=== PATIENT | female | born 1995 | race Caucasian/White ===

== ENCOUNTER 2023-04-17 22:31 | Emergency (ER) | payer OTHER, SELFPAY ==
[2023-04-17 22:41] VITALS: BP 153/97; PULSE 90; RESP 16; TEMP 36.6; O2SAT 100; BMI 37.9
--- NOTE | 2023-04-17 23:51 | ED_ITS ---
HPI - General Adult General Chief complaint: Dizziness Stated complaint: DIZZINESS, COUGH Time Seen by Provider: 04/17/23 23:46 Source: patient Mode of arrival: walk-in Limitations: no limitations History of Present Illness HPI narrative: patient states her home preg test was positive 3 days ago. Her LMP was march. States she had some lower abdominal cramping earlier and tonight felt a little light headed. Carnation like she needed to sit down. Room not spinning and she is not off balance. room not turning dark. no fever or urinary symptoms. She just wanted to get checked out. Related Data Home Medications Medication Instructions Recorded Confirmed albuterol sulfate 90 mcg/actuation 2 inh inhalation Q4H 04/17/23 04/17/23 aerosol inhaler (Ventolin HFA) duloxetine 60 mg capsule,delayed 60 mg PO DAILY 04/17/23 04/17/23 release Allergies Allergy/AdvReac Type Severity Reaction Status Date / Time No Known Drug Allergies Allergy Verified 04/17/23 22:49 Review of Systems ROS Status of ROS 10 or more systems reviewed and unremark able except as noted in history and below [facility] Social History Smoking status: Current every day smoker Exam Constitutional Vital Signs, click to edit/add: Last Vital Signs Temp 97.8 F 04/17/23 22:41 Pulse 90 04/17/23 22:41 Resp 16 04/17/23 22:41 BP 153/97 H 04/17/23 22:41 Pulse Ox 100 04/17/23 22:41 O2 Del Method Room Air 04/17/23 22:41 Common normals: no apparent distress, average body habitus, oriented x3, no limitations, healthy appearing, alert and well nourished Eye Common normals: EOMs intact bilaterally and conjunctivae normal Respiratory Common normals: normal respiratory effort, no retractions, no use of accessory muscles and clear to auscultation bilaterally Cardio Common normals: regular rate, regular rhythm, S1 normal heart sound and S2 normal heart sound GI Common normals: Normal to inspection, nondistended, normoactive bowel sounds present, soft to palpation and non-tender Extremity Common normals: normal to inspection and full ROM Neuro Common normals: oriented x3, CN's II-XII intact bilaterally, moves all extremities and no focal motor deficits Psych Appearance: grossly normal Course Vital Signs Vital signs: Vital Signs Temperature 97.8 F 04/17/23 22:41 Pulse Rate 90 04/17/23 22:41 Respiratory Rate 16 04/17/23 22:41 Blood Pressure 153/97 H 04/17/23 22:41 Pulse Oximetry 100 04/17/23 22:41 Oxygen Delivery Method Room Air 04/17/23 22:41 Temperature 97.8 F 04/17/23 22:41 Pulse Rate 90 04/17/23 22:41 Respiratory Rate 16 04/17/23 22:41 Blood Pressure 153/97 H 04/17/23 22:41 Pulse Oximetry 100 04/17/23 22:41 Oxygen Delivery Method Room Air 04/17/23 22:41 Medical Decision Making MDM Narrative Medical decision making narrative: patient presents with complaint of abdominal cramping and feeling light headed. She is . no vagina bleeding. Exam neg. Workup unremarkable except UA with evidence of dehydration. patient discharged and advised to increase fluid intake Lab Data Labs: Lab Results 04/18/23 04/18/23 Range/Units 00:00 00:08 WBC 10.0 (4.0-11.0) 10^3/uL RBC 4.68 (4.20-5.40) 10^6/uL Hgb 13.4 (12.0-16.0) g/dL Hct 39.8 (36.0-48.0) % MCV 85.0 (81.0-99.0) fL MCH 28.6 (26.7-34.0) pg MCHC 33.7 (29.9-35.2) g/dL RDW 12.4 (11.0-15.0) % Plt Count 330 (150-450) 10^3/uL MPV 11.0 (9.5-13.5) fL Neut % (Auto) 58.1 (43.0-75.0) % Lymph % (Auto) 30.1 (20.5-60.0) % [place] % (Auto) 6.6 (1.7-12.0) % Eos % (Auto) 4.3 (0.9-7.0) % Baso % (Auto) 0.6 (0.2-2.0) % Neut # (Auto) 5.8 (1.4-6.5) 10^3/uL Lymph # (Auto) 3.0 (1.2-3.8) 10^3/uL [place] # (Auto) 0.7 (0.3-0.8) 10^3/uL Eos # (Auto) 0.4 (0.0-0.7) 10^3/uL Baso # (Auto) 0.1 (0.0-0.1) 10^3/uL Abs Immat Gran (auto) 0.03 (0.00-0.03) 10^3/uL Imm/Tot Granulo (auto) 0.3 (0.0-0.5) % Sodium 140 (136-145) mmol/L Potassium 3.4 L (3.5-5.1) mmol/L Chloride 104 (98-107) mmol/L Carbon Dioxide 25.9 (21.0-32.0) mmol/L Anion Gap 13.5 BUN 8.0 (7.0-18.0) mg/dL Creatinine 0.69 (0.55-1.02) mg/dL Est GFR ( Amer) >60 (>=60) Est GFR (Non-Af Amer) >60 (>=60) BUN/Creatinine Ratio 11.6 Glucose 85 (74-106) mg/dL Calcium 9.1 (8.5-10.1) mg/dL Total Bilirubin 0.3 (0.2-1.0) mg/dL AST 14 L (15-37) U/L ALT 28 (14-59) U/L Alkaline Phosphatase 62 (46-116) U/L Total Protein 7.3 (6.4-8.2) g/dL Albumin 3.5 (3.4-5.0) g/dL Globulin 3.8 g/dL Albumin/Globulin Ratio 0.9 Urine Color Yellow (YELLOW) Urine Clarity Clear (CLEAR) Urine pH 6.0 (5.0-9.0) Ur Specific [place] >=1.030 A (1.005-1.025) Urine Protein Negative (NEG/TRACE) mg/dL Urine Glucose (UA) Negative (NEGATIVE) mg/dL Urine Ketones Trace A (NEGATIVE) mg/dL Urine Occult Blood Negative (NEGATIVE) Urine Nitrite Negative (NEGATIVE) Urine Bilirubin Negative (NEGATIVE) Urine Urobilinogen 1.0 (0.2-1.0) EU/dL Ur Leukocyte Esterase Negative (NEGATIVE) Urine HCG, Qual Positive A (NEGATIVE) Discharge Plan Discharge Chief Complaint: Dizziness Clinical Impression: Dehydration Patient Disposition: Home, Self-Care Prescriptions / Home Meds: No Action albuterol sulfate [Ventolin HFA] 90 mcg/actuation HFA aerosol inhaler 2 inh INHALATION Q4H duloxetine 60 mg capsule,delayed release(DR/EC) 60 mg PO DAILY Instructions: Dehydration (ED) Stand Alone Forms: Portal Instructions Referrals: [facility] [Primary Care Provider] - 1 week
[2023-04-18] MEDS: ONDANSETRON 4 MG RAPDIS TABLET SL (00:13)
[2023-04-18 00:29] LABS: Basophils Absolute Auto 0.1 10^3/uL (0.0-0.1); Basophils Percent Auto 0.6 % (0.2-2.0); Eosinophils Absolute Auto 0.4 10^3/uL (0.0-0.7); Eosinophils Percent Auto 4.3 % (0.9-7.0); Hematocrit 39.8 % (36.0-48.0); Hemoglobin 13.4 g/dL (12.0-16.0); Immature Granulocytes Abs Auto 0.03 10^3/uL (0.00-0.03); Immature Granulocytes Pct Auto 0.3 % (0.0-0.5); Lymphocytes Percent Auto 30.1 % (20.5-60.0); Mean Corpuscular HGB Conc 33.7 g/dL (29.9-35.2); Mean Corpuscular Hemoglobin 28.6 pg (26.7-34.0); Monocytes Absolute Auto 0.7 10^3/uL (0.3-0.8); Monocytes Percent Auto 6.6 % (1.7-12.0); Neutrophils Absolute Auto 5.8 10^3/uL (1.4-6.5); Neutrophils Percent Auto 58.1 % (43.0-75.0); Platelet Count 330 10^3/uL (150-450); Red Blood Count 4.68 10^6/uL (4.20-5.40); Red Cell Distribution Width 12.4 % (11.0-15.0)
[2023-04-18 00:30] LABS: Bilirubin Urine NEGATIVE (NEGATIVE); Blood Urine NEGATIVE (NEGATIVE); Clarity Urine CLEAR (CLEAR); Color Urine YELLOW (YELLOW); Glucose Urine UA NEGATIVE (NEGATIVE); Ketones Urine TRACE mg/dL (NEGATIVE); Leukocyte Esterase Urine NEGATIVE (NEGATIVE); Nitrite Urine NEGATIVE (NEGATIVE); Protein Urine NEGATIVE (NEG/TRACE); Specific Gravity Urine >=1.030 (1.005-1.025)
[2023-04-18 00:32] LABS: Urine Microscopic Indicated NO
[2023-04-18 00:33] LABS: HCG Qualitative Urine* POSITIVE (NEGATIVE)
[2023-04-18 00:42] LABS: Alanine Aminotransferase 28 U/L (14-59); Albumin Globulin Ratio 0.9; Albumin Level 3.5 g/dL (3.4-5.0); Alkaline Phosphatase 62 U/L (46-116); Anion Gap 13.5; Aspartate Amino Transferase 14 U/L (15-37); BUN Creatinine Ratio 11.6; Bilirubin Total 0.3 mg/dL (0.2-1.0); Calcium 9.1 mg/dL (8.5-10.1); Carbon Dioxide 25.9 mmol/L (21.0-32.0); Chloride 104 mmol/L (98-107); Estimated GFR (African America >60 (>=60); Estimated GFR (Non-African Ame >60 (>=60); Globulin 3.8 g/dL; Glucose 85 mg/dL (74-106); Potassium 3.4 mmol/L (3.5-5.1); Sodium 140 mmol/L (136-145); Total Protein 7.3 g/dL (6.4-8.2)
== END 2023-04-18 01:04 | disposition home or self-care (01) ==
PROVIDERS: Emergency Provider Internal Medicine
DX: O99.281 Endocrine, nutritional and metabolic diseases complicating pregnancy, first trimester (principal); E86.0 Dehydration; Z3A.00 Weeks of gestation of pregnancy not specified; Z79.899 Other long term (current) drug therapy; O99.331 Smoking (tobacco) complicating pregnancy, first trimester; F17.210 Nicotine dependence, cigarettes, uncomplicated
CPT/HCPCS: 36415; 80053; 81003; 84703; 85025; 99283; Q0162

== ENCOUNTER 2023-07-13 00:17 | Emergency (ER) | payer OTHER, SELFPAY ==
[2023-07-13 00:21] VITALS: BP 148/96; PULSE 96; TEMP 37.4; O2SAT 97; BMI 38.1
--- NOTE | 2023-07-13 00:33 | US_ITS ---
[address] [address] Patient Name: ASHLEY GURROLA MRN: [id number] date: 1995 Sex: F Assigned Patient Location: ER Current Patient Location: ER Accession/Order Number: [id number] Exam Date: 07/13/2023 01:10 Report Date: 07/13/2023 01:51 At the request of: JLUIS CONDON Procedure: US OB placenta Examination:US OB cervical length, US OB placenta INDICATION:16wks preg, vaginal bleeding COMPARISON:None. TECHNIQUE:Transabdominal imaging of the fetus was performed. The cervix was evaluated with transvaginal scanning. FINDINGS: There is a single live intrauterine gestation with cardiac activity. heartbeat 165 bpm was obtained. presentation is cephalic with a longitudinal lie. The placenta is posterior in location and is low-lying. There is no placental abruption appreciated on this exam. The cervical length is 3.9 cm. There is no cervical funneling. US/US OB placenta IMPRESSION: 1. Single live intrauterine gestation with cardiac activity in cephalic presentation. 2. No evidence of placental abruption. The placenta is low-lying and is posterior in location. 3. The cervical length measures 3.9 cm without funneling. Electronically authenticated by: CORI LUNA Date: 07/13/2023 01:51
--- NOTE | 2023-07-13 00:33 | US_ITS ---
[address] [address] Patient Name: ASHLEY GURROLA MRN: [id number] date: 1995 Sex: F Assigned Patient Location: ER Current Patient Location: ER Accession/Order Number: [id number] Exam Date: 07/13/2023 01:10 Report Date: 07/13/2023 01:51 At the request of: JLUIS CONDON Procedure: US OB cervical length Examination:US OB cervical length, US OB placenta INDICATION:16wks preg, vaginal bleeding COMPARISON:None. TECHNIQUE:Transabdominal imaging of the fetus was performed. The cervix was evaluated with transvaginal scanning. FINDINGS: There is a single live intrauterine gestation with cardiac activity. heartbeat 165 bpm was obtained. presentation is cephalic with a longitudinal lie. The placenta is posterior in location and is low-lying. There is no placental abruption appreciated on this exam. The cervical length is 3.9 cm. There is no cervical funneling. US/US OB cervical length IMPRESSION: 1. Single live intrauterine gestation with cardiac activity in cephalic presentation. 2. No evidence of placental abruption. The placenta is low-lying and is posterior in location. 3. The cervical length measures 3.9 cm without funneling. Electronically authenticated by: CORI LUNA Date: 07/13/2023 01:51
--- NOTE | 2023-07-13 00:48 | ED_ITS ---
HPI - General Chief complaint: Vaginal Bleeding Stated complaint: vaginal/rectal bleeding 16 weeks Time Seen by Provider: 07/13/23 00:21 Source: patient Mode of arrival: walk-in Limitations: no limitations History of Present Illness HPI Narrative: Tonight around 1130pm the patient developed vaginal bleeding. She describes it as more than spotting but less than a regular period. No recent trauma. No f lank pain. She describes pain across the lower abdomen that has been present for more than a day . Last 3 days she admits to constipation to the triage nurse with some straining to have a BM earlier and some rectal blood. No meds taken for the constipation and she did not call her OB to discuss any of her symptoms. Bleeding continues on arrival and during her triage, interview and exam. - first did not have any complications. Related Data Home Medications ?Medication ?Instructions ?Recorded ?Confirmed albuterol sulfate 90 mcg/actuation 2 inh inhalation Q4H 04/17/23 04/17/23 aerosol inhaler (Ventolin HFA) Allergies Allergy/AdvReac Type Severity Reaction Status Date / Time No Known Drug Allergies Allergy Verified 07/13[facility]23 00[facility]26 [facility] Social History Smoking status: Current every day smoker Exam Narrative Exam Narrative: Nurses notes and vital signs reviewed and patient is not hypoxic. afebrile General: Well-appearing and in no apparent distress. Skin: Warm, dry, no pallor noted. Eye: Pupils are equal, round and EOMI. No scleral icterus. Ears, Nose, Mouth, and Throat: Oral mucosa is moist Cardiovascular: Regular Rate and Rhythm without murmur, gallop or rub. Respiratory: No accessory muscle use or respiratory distress. Lungs are clear to auscultation, no wheezing, rales or rhonchi Back: No thoracolumbar tenderness or CVA tenderness Musculoskeletal: normal ROM, no calf or popliteal tenderness, no lower extremity edema/swelling GI: Abdomen is soft, non-distended. Normal bowel sounds. Gravid uterus. Bilateral lower abdominal tenderness to palpation = mild. No rebound, guarding, or rigidity noted. Neurological: A&O x4. No cranial nerve dysfunction observed. No truncal ataxia. Moves all extremities. Sensation intact. Psychiatric: Cooperative and interactive. Normal mood and affect. Constitutional Vital Signs, click to edit/add: Last Vital Signs Temp 99.3 F 07/13/23 00:21 Pulse 96 H 07/13/23 00:21 Resp 18 07/13/23 00:21 BP 148/96 H 07/13/23 00:21 Pulse Ox 97 07/13/23 00:21 O2 Del Method Room Air 07/13/23 00:21 Course Vital Signs Vital signs: Vital Signs Temperature 99.3 F 07/13/23 00:21 Pulse Rate 96 H 07/13/23 00:21 Respiratory Rate 18 07/13/23 00:21 Blood Pressure 148/96 H 07/13/23 00:21 Pulse Oximetry 97 07/13/23 00:21 Oxygen Delivery Method Room Air 07/13/23 00:21 Temperature 99.3 F 07/13/23 00:21 Pulse Rate 96 H 07/13/23 00:21 Respiratory Rate 18 07/13/23 00:21 Blood Pressure 148/96 H 07/13/23 00:21 Pulse Oximetry 97 07/13/23 00:21 Oxygen Delivery Method Room Air 07/13/23 00:21 MDM - OB/Uterine Contractions MDM Narrative Medical decision making narrative: FHTs 170. US tech called in from home. No worrisome findings on US placenta and cervix. 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 [place] [facility] [place] since she plans to deliver there and not at [facility]. Imaging Data US placenta & cervix: Radiologist's impression: ITS Impressions Obstetrics Ultrasound 07/13/23 00:33 IMPRESSION: 1. Single live intrauterine gestation with cardiac activity in cephalic presentation. 2. No evidence of placental abruption. The placenta is low-lying and is posterior in location. 3. The cervical length measures 3.9 cm without funneling. Electronically authenticated by: CORI LUNA Date: 07/13/2023 01:51 Obstetrics Ultrasound 07/13/23 00:33 IMPRESSION: 1. Single live intrauterine gestation with cardiac activity in cephalic presentation. 2. No evidence of placental abruption. The placenta is low-lying and is posterior in location. 3. The cervical length measures 3.9 cm without funneling. Electronically authenticated by: CORI LUNA Date: 07/13/2023 01:51 Discharge Plan Discharge Stand Alone Forms: Portal Instructions Chief Complaint: Vaginal Bleeding Clinical Impression: Antepartum bleeding, second trimester Patient Disposition: Home, Self-Care Time of Disposition Decision: 02:14 Prescriptions / Home Meds: No Action albuterol sulfate [Ventolin HFA] 90 mcg/actuation HFA aerosol inhaler 2 inh INHALATION Q4H Print Language: Kinyarwanda Instructions: Threatened Miscarriage (ED), at 15 to 18 Weeks (ED) Referrals: [facility] [Primary Care Provider] - 1 week
--- OUTSIDE RECORDS SUMMARY | 2023-07-13 00:55 | XMS_ITS | CCD ---
Author Organization [facility] Care Team Providers Care Guest Service Representative Name Role Phone AMAURYC, DR ANAND Admitting Unavailable MISC, DR ANAND Attending Unavailable REQUEST, NONE LISTED Primary Care Unavaila ble MISC, DR ANAND Consulting Unavailable Dequan Watkins Unavailable ROBIN SantoC Dania Hernandez Attending Pr ovider NO FAMILY, PHYSICIAN Primary Care Provider Unava DO Caden Mayen Emergency Provider Marcy GONZALEZ Attending Unavailable Marcy GONZALEZ Attending Unavailable Marcy GONZALEZ Attending Unavailable NO FAMILY, PHYSICIAN Primary Care Provider Unava MD Shaunna Edwards Emergency Provider [facility], Services Primary Care Provider DO Apollo Malloy Emergency Provider [phone] ELISEO Perdomo Emergency Provider Jas Perdomo Admitting Unavailable Jas Perdomo Attending Unavailable [facility], Services Primary Care Unavaila ble NO FAMILY, PHYSICIAN Primary Care Unavailable Dania Santo Admitting U Dania García Attending U navailApollo Baer Attending Unavailable [facility], Services Primary Care Unavaila ble Apollo Malloy Admitting Unavailable NO FAMILY, PHYSICIAN Primary Care Unavailable Shaunna Prakash Admitting Unavailable Shaunna Prakash Attending Unavailable PARVEEN DE LOS SANTOS Attending Unavailable PARVEEN DE LOS SANTOS Attending Unavailable Allergies Allergy Classification Reported Allergen(s) Allergy Type Date of Onset Reaction(s) Facility (2 sources) Pollen Propensity to adverse reactions Unknown [facility] Other (2 sources) Cat dander Propensity to adverse reactions Unknown [facility] Other (2 sources) Dog dander Propensity to adverse reactions Unknown [facility] Other (1 source) Pollen Drug allergy (disorder) 3 [facility] Repository (1 source) cat dander Drug allergy (disorder) 3 [facility] Repository (1 source) dog dander Drug allergy (disorder) 3 [facility] Repository Medications Current Medications Medication Drug Class(es) Dates Sig (Normalized) Sig (Original) acetaminophen 325 mg oral tablet (3 sources) Start: 01-01-2023 take 1 tablet by mouth every six hours Acetaminophen (Tylenol) 325 mg tablet Active 325 MG PO Q6H 30 December 31, 2022 11:00pm [id number] 200 actuat albuterol 0.09 mg/actuat metered dose inhaler (2 sources) beta2-Adrenergic Agonist Start: 06-05-2022 Albuterol Sulfate (2.5 MG/3ML) 0.083% 3 ml as needed Inhalation every 8 hrs for 7 days May, Active Start: 06-05-2022 take 2 puff(s) by in halation every four to six hours as needed Albuterol Sulfate HFA 108 (90 Base) MCG/ACT 2 puffs as needed Inhalation every 4-6 hours for 14 days May, Active amoxicillin 875 mg oral tablet (1 source) Penicillin-class Antibacterial Start: 05-15-2022 take 1 tablet by mouth every twelve hours Amoxicillin 875 MG 1 tablet Orally every 12 hrs for 10 day(s) May, Active azithromycin 250 mg oral tablet (1 source) Macrolide Antimicrobial Start: 06-05-2022 Azithromycin 250 MG 2 tablet on the first day, then 1 tablet daily for 4 days Orally Once a day for 5 day(s) May, Active dextromethorphan hydrobromide 1.5 mg/ml / pyrilamine maleate 1.5 mg/ml oral solution (1 source) Uncompetitive T-updeud-V-aspartate Receptor Antagonist, Sigma-1 Agonist Start: 06-05-2022 take 10 mL by mouth every eight hours [place] DM 7.5-7.5 MG/5ML 10 mL Orally every 8 hours for 5 days May, Active doxycycline hyclate 100 mg oral capsule (1 source) Tetracycline-class Drug Start: 06-27-2017 take 1 capsule by mouth every twelve hours Doxycycline Hyclate 100 MG 1 capsule Orally every 12 hrs for 7 days Jun, Active DULoxetine 60 mg delayed release oral capsule (4 sources) Serotonin and Norepinephrine Reuptake Inhibitor Start: 01-01-2023 take 60 mg by mouth once daily Duloxetine Active 60 MG PO Daily December 31, 2022 11:00pm take 1 capsule by mo [facility] every twelve hours DULoxetine HCl 20 MG 1 capsule Orally Tw ice a day Active methylPREDNISolone 4 mg oral tablet (1 source) Corticosteroid Start: 06-05-2022 methylPREDNISolone 4 MG as directed Orally for daily dose take half with breakfast, half with dinner for 6 days May, Active ondansetron 4 mg oral tablet (3 sources) Serotonin-3 Receptor Antagonist Start: 01-01-2023 take 4 mg by mouth twice daily Ondansetron Hcl Active 4 MG PO Twice daily 6 3 December 31, 2022 11:00pm predniSONE 20 mg oral tablet (1 source) Start: 06-27-2017 predniSONE 20 MG Take 3 tablets once per day for 5 days Orally Once a day for 5 days Jun, Active Completed/Discontinued Medications Medication Drug Class(es) Dates Sig (Normalized) Sig (Original) acetaminophen 325 mg / HYDROcodone bitartrate 5 mg oral tablet (5 sources) Opioid Agonist Start: 10-21-2017 End: 01-01-2023 take 1 tablet by mouth every four hours Hydrocodone-Acetam inophen ([place]) 5-325 mg tablet Discontinued 1 TAB PO Q4H October 21, 2017 January 01, 2023 5:49pm cephalexin 500 mg oral capsule (5 sources) Cephalosporin Antibacterial Start: 10-21-2017 End: 10-28-2017 take 1 g by mouth twice daily Cephalexin (Keflex) 500 mg capsule Discontinued 1 GM PO Twice daily 04 11October 20, 2017 11:00pm October 27, 2017 11:02pm ibuprofen 600 mg oral tablet (5 sources) Nonsteroidal Anti-inflammatory Drug Start: 10-21-2017 End: 01-01-2023 take 600 mg by mouth every eight hours Ibuprofen Discontinued 600 MG PO Q8H October 20, 2017 11:00pm January 01, 2023 5:49pm Problems Active Problems Problem Classification Problem Date Documented Date Episodic/Chronic Asthma (4 sources) Mild intermittent asthma, uncomplicated; Translations: [MILD INTERMIT ASTHMA UNCOMPLICATED] Onset: 09-17-2021 Chronic Conditions associated with dizziness or vertigo (3 sources) Lightheadedness; Translations: [Dizziness and giddiness] 01-01-2023 Episodic Esophageal disorders (4 sources) Gastric reflux; Translations: [Gastro-esophageal reflux disease without esophagitis] 03-13-2022 Chronic Headache; including migraine (3 sources) Headache; Translations: [Headache] 01-01-2023 Episodic Headache; including migraine (1 source) Headache; including migraine; Translations: [Headache, unspecified] Onset: 01-01-2023 Nonspecific chest pain (4 sources) Atypical chest pain; Translations: [Other chest pain] 03-13-2022 Episodic Other connective tissue disease (1 source) Other specified soft tissue disorders; Translations: [Other specified soft tissue disorders] Onset: 05-17-2023 Episodic Other disorders of stomach and duodenum (1 source) Indigestion; Translations: [Functional dyspepsia] Episodic Other and delivery including normal (1 source) ; Translations: [Encounter for supervision of normal , unspecified, unspecified trimester] 05-17-2023 Episodic Other upper respiratory disease (1 source) Nasal congestion; Translations: [Nasal congestion] Episodic Other upper respiratory infections (4 sources) Streptococcal sore throat; Translations: [Streptococcal pharyngitis] Episodic Residual codes; unclassified (1 source) Peripheral edema; Translations: [Localized edema] 05-17-2023 Episodic Unclassified (1 source) Fever, unspecified; Translations: [Fever, unspecified] Onset: 04-17-2023 Unclassified (1 source) Encounter for gynecological examination (general) (routine) without abnormal findings; Translations: [Encounter for gynecological examination (general) (routine) without abnormal findings] Onset: 09-21-2022 Past or Other Problems Problem Classification Problem Date Documented Da te Episodic/Chronic Immunizations and screening for infectious disease (1 source) Contact with and (suspected) exposure to other viral communicable diseases; Translations: [Contact with and (suspected) exposure to other viral communicable diseases Z20.828] Onset: 01-06-2021 Resolved: 01-06-2021 Episodic Results Test Name Value Interpretation Reference Range Facility Activated partial thrombopla stin time (aPTT) in platelet poor plasma by coagulation aOrdered By: Jas Perdomo on 05-17-2023 aPTT Coag (PPP) [Time] 29.0 s 25.1-36.5 [facility] Comment on above: A hematocrit value g reater than 55% may lead to inaccurate results in coagulation testing. Patients having hematocrit values >55% require a special collection tube for coagulation studies. Please contact the laboratory at [phone] for redraw instructions. Alanine aminotransferase [En zymatic activity/volume] in Serum or PlasmaOrdered By: Jas Perdomo on 05-17-2023 ALT [Catalytic activity/Vol] 15 U/L 7-52 [facility] Albumin [Mass/volume] in Ser um or Plasma by Bromocresol green (BCG) dye binding methoOrdered By: Jas Perdomo on 05-17-2023 Albumin BCG dye [Mass/Vol] 4.1 g/dL 3.5-5.7 [facility] Alkaline phosphatase [Enzyma tic activity/volume] in Serum or PlasmaOrdered By: Jas Perdomo on 05-17-2023 ALP [Catalytic activity/Vol] 52 U/L 34-104 [facility] Aspartate aminotransferase [ Enzymatic activity/volume] in Serum or PlasmaOrdered By: Jas Perdomo on 05-17-2023 AST [Catalytic activity/Vol] 16 U/L 13-39 [facility] B-Type Natriuretic Peptideon 05-17-2023 Natriuretic peptide B (Bld) [Mass/Vol] 30.0 pg/mL Normal 5-100 [facility] Comment on above: Result Comment: PERF ORMED BY: [facility] [address] [place] [address] PATHOLOGIST PLANT BIOLOGY PROFESSOR ESTELA MAYNARD M.D. Performed By: #### B GAS SPECIALIST, PT, HEPATIC, HS TROP, PTT, TSH3, CBC, BMP ####[facility] [id number] [place] [address] [facility] Basic Metabolic Panelon 02-0 Anion gap [Moles/Vol] 12.8 mmol/L Normal 6.0-15.0 [facility] Comment on above: Performed By: #### B GAS SPECIALIST, PT, HEPATIC, HS TROP, PTT, TSH3, CBC, BMP ####[address] Calcium [Mass/Vol] 9.6 mg/dL Normal 8.6-10.3 [facility] Comment on above: Performed By: #### B GAS SPECIALIST, PT, HEPATIC, HS TROP, PTT, TSH3, CBC, BMP ####[place] [id number] Chloride [Moles/Vol] 104 mmol/L Normal 98-107 [place] Comment on above: Performed By: #### B GAS SPECIALIST, PT, HEPATIC, HS TROP, PTT, TSH3, CBC, BMP ####[place] [id number] [facility] CO2 [Moles/Vol] 23.8 mmol/L Normal 21.0-31.0 [facility] Comment on above: Performed By: #### B GAS SPECIALIST, PT, HEPATIC, HS TROP, PTT, TSH3, CBC, BMP ####[place] [id number] [facility] Creatinine [Mass/Vol] 0.59 mg/dL Low 0.60-1.20 [facility] Comment on above: Performed By: #### B GAS SPECIALIST, PT, HEPATIC, HS TROP, PTT, TSH3, CBC, BMP ####[place] [id number] [facility] Creatinine Clr Calc Pharmacy 152.94 [facility] Comment on above: Performed By: #### B GAS SPECIALIST, PT, HEPATIC, HS TROP, PTT, TSH3, CBC, BMP ####[place] [id number] [facility] GFR/1.73 sq M.predicted MDRD (S/P/Bld) [Vol rate/Area] mL/min/{1.73_m2} [facility] Comment on above: Performed By: #### B GAS SPECIALIST, PT, HEPATIC, HS TROP, PTT, TSH3, CBC, BMP ####[place] [id number] Glucose [Mass/Vol] 75 mg/dL Normal 70-100 [facility] Comment on above: Result Comment: Formerly named [facility] Glucose Reference Range is dependent on time and content of last meal. Glucose of more than 200 mg/dL in a nonstressed, ambulatory subject supports the diagnosis of Diabetes Mellitus. ADA recommended reference range Performed By: #### B GAS SPECIALIST, PT, HEPATIC, HS TROP, PTT, TSH3, CBC, BMP ####[place] [id number] Potassium [Moles/Vol] 3.6 mmol/L Normal 3.5-5.1 [facility] Comment on above: Performed By: #### B GAS SPECIALIST, PT, HEPATIC, HS TROP, PTT, TSH3, CBC, BMP ####[address] Sodium [Moles/Vol] 137 mmol/L Normal 136-145 [facility] Comment on above: Performed By: #### B GAS SPECIALIST, PT, HEPATIC, HS TROP, PTT, TSH3, CBC, BMP ####[address] Urea nitrogen [Mass/Vol] 9 mg/dL Normal 7-25 [facility] Comment on above: Performed By: #### B GAS SPECIALIST, PT, HEPATIC, HS TROP, PTT, TSH3, CBC, BMP ####[address] Basophils Auto (Bld) [#/Vol] Ordered By: Jas Perdomo on 05-17-2023 Basophils (Bld) [#/Vol] 0.0 10*3/uL 0.0-0.2 [facility] Basophils/100 WBC Auto (Bld) Ordered By: Jas Perdomo on 05-17-2023 Basophils/100 WBC (Bld) 0.4 % . [facility] Bilirubin Test strip Ql (U)O rdered By: Jas Perdomo on 05-17-2023 Bilirubin Ql (U) Negative Negative [facility] Bilirubin.direct [Mass/volum e] in Serum or PlasmaOrdered By: Jas Perdomo on 05-17-2023 Bilirubin.direct [Mass/Vol] 0.10 mg/dL 0.03-0.18 [facility] Bilirubin.total [Mass/volume ] in Serum or PlasmaOrdered By: Jas Perdomo on 05-17-2023 Bilirubin [Mass/Vol] 0.3 mg/dL 0.3-1.0 [place] COVID CepheidOrdered By: Dale Perdomo on 05-17-2023 SARS-CoV-2 (COVID-19) Ab IA Ql Negative Negative [facility] Comment on above: This is a duplicate Cepheid Xpert Xpress CoV-2/Flu/RSV Plus RNA by RT-PCR result to be used for statistical tracking purpose only. SARS-CoV-2 (COVID-19) RNA JOSIE+probe Ql (Unsp spec) [facility] COVID-19 / Flu A/B / RSV PCR on 05-17-2023 SARS-CoV-2 (COVID-19) RNA JOSIE+probe Ql (Unsp spec) COVID-19 Cepheid Result Negative for SARS-CoV-2 RNA by RT-PCR Flu A Cepheid Result Negative for Flu A RNA by RT-PCR Flu B Cepheid Result Negative for Flu B RNA by RT-PCR RSV Cepheid Result Negative for RSV RNA by RT-PCR COVID19 Blank Space ---- Reference: Negative COVID19 Blank Space ---- Cepheid Disclaimer The Cepheid Xpert Xpress CoV-2/Flu/RSV Plus has Cepheid Disclaimer not been FDA cleared or approved; this test has Cepheid Disclaimer been authorized by FDA under an EUA for use by Cepheid Disclaimer authorized laboratories; this test has been Cepheid Disclaimer authorized only for the simultaneous qualitative Cepheid Disclaimer detection and differentiation of nucleic acids from Cepheid Disclaimer SARS-CoV-2, influenza A, influenza B, and Cepheid Disclaimer respiratory syncytial virus (RSV), and not for any Cepheid Disclaimer other viruses or pathogens; and this test is only Cepheid Disclaimer authorized for the duration of the declaration that Cepheid Disclaimer circumstances exist justifying the authorization of Cepheid Disclaimer emergency use of in vitro diagnostic tests for Cepheid Disclaimer detection and/or diagnosis of COVID-19 under Cepheid Disclaimer Section 564(b)(1) of the Act, 21 U.S.C. 360bbb- Cepheid Disclaimer 3(b)(1), unless the authorization is terminated or Cepheid Disclaimer revoked sooner. PERFORMED BY: [facility] [address] [place] [address] PATHOLOGIST PLANT BIOLOGY PROFESSOR ESTELA MAYNARD M.D. Normal [facility] Comment on above: Performed By: #### C OVID19 FLU RSV, CEPHEID NEG ####[facility] [id number] [place] [address] [facility] Calcium [Mass/volume] in Ser um or PlasmaOrdered By: Jas Perdomo on 05-17-2023 Calcium [Mass/Vol] 9.6 mg/dL 8.6-10.3 [facility] Carbon dioxide, total [Moles /volume] in Serum or PlasmaOrdered By: Jas Perdomo on 05-17-2023 CO2 [Moles/Vol] 23.8 mmol/L 21.0-31.0 [facility] Cepheid COVID PCR Negativeon 05-17-2023 SARS-CoV-2 (COVID-19) RNA JOSIE+probe Ql (Unsp spec) Negative Normal Negative [facility] Comment on above: Result Comment: This is a duplicate Cepheid Xpert Xpress CoV-2/Flu/RSV Plus RNA by RT-PCR result to be used for statistical tracking purpose only. PERFORMED BY: [facility] [address] [place] [address] PATHOLOGIST PLANT BIOLOGY PROFESSOR ESTELA MAYNARD M.D. Performed By: #### C OVID19 FLU RSV, CEPHEID NEG ####[place] [id number] [facility] Chloride [Moles/volume] in S robert or PlasmaOrdered By: Jas Perdomo on 05-17-2023 Chloride [Moles/Vol] 104 mmol/L 98-107 [place] Color Auto (U)Ordered By: Ervin Perdomo on 05-17-2023 Color (U) Yellow Yellow [facility] Complete Blood Count Auto Di ffon 05-17-2023 Basophils (Bld) [#/Vol] 0.0 10*3/uL Normal 0.0-0.2 [facility] Comment on above: Result Comment: PERF ORMED BY: [facility] [address] [place] [address] PATHOLOGIST PLANT BIOLOGY PROFESSOR ESTELA MAYNARD M.D. Performed By: #### B GAS SPECIALIST, PT, HEPATIC, HS TROP, PTT, TSH3, CBC, BMP ####[address] Basophils/100 WBC (Bld) 0.4 % Normal . [facility] Comment on above: Performed By: #### B GAS SPECIALIST, PT, HEPATIC, HS TROP, PTT, TSH3, CBC, BMP ####[place] [id number] [facility] Eosinophils (Bld) [#/Vol] 0.5 10*3/uL High 0.0-0.45 [facility] Comment on above: Performed By: #### B GAS SPECIALIST, PT, HEPATIC, HS TROP, PTT, TSH3, CBC, BMP ####[place] [id number] [facility] Eosinophils/100 WBC (Bld) 4.5 % Normal . [facility] Comment on above: Performed By: #### B GAS SPECIALIST, PT, HEPATIC, HS TROP, PTT, TSH3, CBC, BMP ####[place] [id number] [facility] Erythrocyte distribution width (RBC) [Ratio] 12.6 % Normal 11.9-15.3 [facility] Comment on above: Performed By: #### B GAS SPECIALIST, PT, HEPATIC, HS TROP, PTT, TSH3, CBC, BMP ####[address] Hematocrit (Bld) [Volume fraction] 39.5 % Normal 34.0-46.4 [facility] Comment on above: Performed By: #### B GAS SPECIALIST, PT, HEPATIC, HS TROP, PTT, TSH3, CBC, BMP ####[address] Hemoglobin (Bld) [Mass/Vol] 13.8 g/dL Normal 11.8-15.4 [facility] Comment on above: Performed By: #### B GAS SPECIALIST, PT, HEPATIC, HS TROP, PTT, TSH3, CBC, BMP ####[address] Lymphocytes (Bld) [#/Vol] 2.9 10*3/uL Normal 1.00-4.8 [facility] Comment on above: Performed By: #### B GAS SPECIALIST, PT, HEPATIC, HS TROP, PTT, TSH3, CBC, BMP ####[address] Lymphocytes/100 WBC (Bld) 28.3 % Normal . [facility] Comment on above: Performed By: #### B GAS SPECIALIST, PT, HEPATIC, HS TROP, PTT, TSH3, CBC, BMP ####[address] MCH (RBC) [Entitic mass] 28.9 pg Normal 24.7-34.3 [facility] Comment on above: Performed By: #### B GAS SPECIALIST, PT, HEPATIC, HS TROP, PTT, TSH3, CBC, BMP ####[address] MCV (RBC) [Entitic vol] 82.9 fL Normal 80-100 [facility] Comment on above: Performed By: #### B GAS SPECIALIST, PT, HEPATIC, HS TROP, PTT, TSH3, CBC, BMP ####[place] [id number] Mean Corpuscular HGB Conc 34.8 g/dL Normal 32.0-35.0 [facility] Comment on above: Performed By: #### B GAS SPECIALIST, PT, HEPATIC, HS TROP, PTT, TSH3, CBC, BMP ####[address] Monocytes (Bld) [#/Vol] 0.5 10*3/uL Normal 0.0-0.8 [facility] Comment on above: Performed By: #### B GAS SPECIALIST, PT, HEPATIC, HS TROP, PTT, TSH3, CBC, BMP ####[address] Monocytes/100 WBC (Bld) 18.04 % Normal 0.00-20.00 [facility] Comment on above: Performed By: #### B GAS SPECIALIST, PT, HEPATIC, HS TROP, PTT, TSH3, CBC, BMP ####[address] Monocytes/100 WBC (Bld) 4.7 % Normal . [facility] Comment on above: Performed By: #### B GAS SPECIALIST, PT, HEPATIC, HS TROP, PTT, TSH3, CBC, BMP ####[address] Neutrophils (Bld) [#/Vol] 6.3 10*3/uL Normal 1.8-7.7 [facility] Comment on above: Performed By: #### B GAS SPECIALIST, PT, HEPATIC, HS TROP, PTT, TSH3, CBC, BMP ####[place] [id number] [facility] Neutrophils/100 WBC (Bld) 62.1 % Normal . [facility] Comment on above: Performed By: #### B GAS SPECIALIST, PT, HEPATIC, HS TROP, PTT, TSH3, CBC, BMP ####[address] NRBC% 0.0 /100{WBC} Normal 0-0.5 [facility] Comment on above: Performed By: #### B GAS SPECIALIST, PT, HEPATIC, HS TROP, PTT, TSH3, CBC, BMP ####[place] [id number] Platelet mean volume (Bld) [Entitic vol] 9.3 fL Normal 6.3-10.7 [facility] Comment on above: Performed By: #### B GAS SPECIALIST, PT, HEPATIC, HS TROP, PTT, TSH3, CBC, BMP ####[address] Platelets (Bld) [#/Vol] 306 10*3/uL Normal 150-450 [facility] Comment on above: Performed By: #### B GAS SPECIALIST, PT, HEPATIC, HS TROP, PTT, TSH3, CBC, BMP ####[place] [id number] RBC (Bld) [#/Vol] 4.76 10*6/uL Normal 3.60-5.00 [facility] Comment on above: Performed By: #### B GAS SPECIALIST, PT, HEPATIC, HS TROP, PTT, TSH3, CBC, BMP ####[address] WBC (Bld) [#/Vol] 10.2 10*3/uL Normal 3.8-11.6 [facility] Comment on above: Performed By: #### B GAS SPECIALIST, PT, HEPATIC, HS TROP, PTT, TSH3, CBC, BMP ####[address] Creatinine [Mass/volume] in Serum or PlasmaOrdered By: Jas Perdomo on 05-17-2023 Creatinine [Mass/Vol] 0.59 mg/dL 0.60-1.20 [facility] ECG 12 lead ECGon 05-17-2023 ECG 12 lead ECG [facility] [address] [place] [address] [place] [address] Electrocardiograph Report Signed Patient: Ashley Velsaquez MR#: [id number] 8 : 1995 Acct:[id number] Age/Sex: 28 / F ADM Date: 05/17/23 Loc: ER Room: Type: [facility] ER Attending Dr: Ordering Provider: Jas Perdomo PA-C Date of Service: 05/17/2310/31/1738 ECG/ECG 12 lead ECG: Neuro Symptoms/Deficit Copies to: Test Reason : Blood Pressure : 129/057 mmHG Vent. Rate : 074 BPM Atrial Rate : 074 BPM P-R Int : 136 ms QRS Dur : 082 ms QT Int : 386 ms P-R-T Axes : 044 036 015 degrees QTc Int : 428 ms Normal sinus rhythm with sinus arrhythmia Normal ECG When compared with ECG of 17-APR-2023 21:22, No significant change was found Confirmed by HEATHER CORDOVA MD ([id number]) on 05/18/2023 1:34:31 AM Referred By: Electronically Signed By:HEATHER CORDOVA MD Transcribed By: MUS Signed By Heather Cordova MD 12/01 0134 Normal [facility] Eosinophils Auto (Bld) [#/Vo l]Ordered By: Jas Perdomo on 05-17-2023 Eosinophils (Bld) [#/Vol] 0.5 10*3/uL 0.0-0.45 [facility] Eosinophils/100 WBC Auto (Bl d)Ordered By: Jas Perdomo on 05-17-2023 Eosinophils/100 WBC (Bld) 4.5 % . [facility] Erythrocyte distribution wid th Auto (RBC) [Ratio]Ordered By: Jas Perdomo on 05-17-2023 Erythrocyte distribution width (RBC) [Ratio] 12.6 % 11.9-15.3 [facility] Globulin Calc (S) [Mass/Vol] Ordered By: Jas Perdomo on 05-17-2023 Globulin (S) [Mass/Vol] 3.5 g/dL [facility] Glucose [Mass/volume] in Ser um or PlasmaOrdered By: Jas Perdomo on 05-17-2023 Glucose [Mass/Vol] 75 mg/dL 70-100 [facility] Comment on above: ADA recommended refe rence rangeRandom Glucose Reference Range is dependent on time and content of last meal. Glucose of more than 200 mg/dL in a nonstressed, ambulatory subject supports the diagnosis of Diabetes Mellitus. Hematocrit Auto (Bld) [Volum e fraction]Ordered By: Jas Perdomo on 05-17-2023 Hematocrit (Bld) [Volume fraction] 39.5 % 34.0-46.4 [facility] Hemoglobin [Mass/volume] in BloodOrdered By: Jas Perdomo on 05-17-2023 Hemoglobin (Bld) [Mass/Vol] 13.8 g/dL 11.8-15.4 [facility] Hepatic Panelon 05-17-2023 Albumin [Mass/Vol] 4.1 g/dL Normal 3.5-5.7 [facility] Comment on above: Performed By: #### B GAS SPECIALIST, PT, HEPATIC, HS TROP, PTT, TSH3, CBC, BMP ####[place] [id number] [address] Albumin/Globulin [Mass ratio] 1.2 {ratio} Normal [facility] Comment on above: Performed By: #### B GAS SPECIALIST, PT, HEPATIC, HS TROP, PTT, TSH3, CBC, BMP ####[address] ALP [Catalytic activity/Vol] 52 U/L Normal 34-104 [facility] Comment on above: Performed By: #### B GAS SPECIALIST, PT, HEPATIC, HS TROP, PTT, TSH3, CBC, BMP ####[address] [address] [facility] ALT [Catalytic activity/Vol] 15 U/L Normal 7-52 [facility] Comment on above: Performed By: #### B GAS SPECIALIST, PT, HEPATIC, HS TROP, PTT, TSH3, CBC, BMP ####[place] [id number] [facility] AST [Catalytic activity/Vol] 16 U/L Normal 13-39 [facility] Comment on above: Performed By: #### B GAS SPECIALIST, PT, HEPATIC, HS TROP, PTT, TSH3, CBC, BMP ####[place] [id number] [facility] Bilirubin [Mass/Vol] 0.3 mg/dL Normal 0.3-1.0 [place] Comment on above: Performed By: #### B GAS SPECIALIST, PT, HEPATIC, HS TROP, PTT, TSH3, CBC, BMP ####[address] Bilirubin,Indirect 0.2 mg/dL Normal [facility] Comment on above: Performed By: #### B GAS SPECIALIST, PT, HEPATIC, HS TROP, PTT, TSH3, CBC, BMP ####[address] Bilirubin.indirect [Mass/Vol] 0.10 mg/dL Normal 0.03-0.18 [facility] Comment on above: Performed By: #### B GAS SPECIALIST, PT, HEPATIC, HS TROP, PTT, TSH3, CBC, BMP ####[address] Globulin (S) [Mass/Vol] 3.5 g/dL Normal [facility] Comment on above: Performed By: #### B GAS SPECIALIST, PT, HEPATIC, HS TROP, PTT, TSH3, CBC, BMP ####[address] Protein [Mass/Vol] 7.6 g/dL Normal 6.4-8.9 [facility] Comment on above: Performed By: #### B GAS SPECIALIST, PT, HEPATIC, HS TROP, PTT, TSH3, CBC, BMP ####[address] INR in Platelet poor plasma by Coagulation assayOrdered By: Jas Perdomo on 05-17-2023 INR Coag (PPP) [Relative time] 1.0 {INR} [facility] Comment on above: INR Therapeutic Rang e A) Pre- and Peroperative OAT started two weeks before surgery. NOT HIP SURGERY: 1.5 - 2.5 HIP SURGERY: 2 - 3B) Primary and secondary prevention of venous THROMBOSIS: 2 - 3C) Active venous thrombosis, pulmonary embolismand prevention of recurrent venous thrombosis: 2 - 3D) Prevention of arterial thromboembolismincluding patients with mechanical heart valves: 3 - 4.5 Ketones Auto test strip (U) [Mass/Vol]Ordered By: Jas Perdomo on 05-17-2023 Ketones (U) [Mass/Vol] Negative Negative [facility] Leukocytes [#/volume] correc gilbert for nucleated erythrocytes in Blood by Automated counOrdered By: Jas Perdomo on 05-17-2023 WBC corrected for nucl RBC Auto (Bld) [#/Vol] 10.2 10*3/uL 3.8-11.6 [facility] Lymphocytes Auto (Bld) [#/Vo l]Ordered By: Jas Perdomo on 05-17-2023 Lymphocytes (Bld) [#/Vol] 2.9 10*3/uL 1.00-4.8 [facility] Lymphocytes/100 WBC Auto (Bl d)Ordered By: Jas Perdomo on 05-17-2023 Lymphocytes/100 WBC (Bld) 28.3 % . [facility] MCH Auto (RBC) [Entitic mass ]Ordered By: Jas Perdomo on 05-17-2023 MCH (RBC) [Entitic mass] 28.9 pg 24.7-34.3 [facility] MCHC Auto (RBC) [Mass/Vol]Or dered By: Jas Perdomo on 05-17-2023 MCHC (RBC) [Mass/Vol] 34.8 g/dL 32.0-35.0 [facility] MCV Auto (RBC) [Entitic vol] Ordered By: Jas Perdomo on 05-17-2023 MCV (RBC) [Entitic vol] 82.9 fL 80-100 [facility] Monocyte distribution width [Entitic volume] in Blood by AutomatedOrdered By: Jas Perdomo on 05-17-2023 Monocyte distribution width Auto (Bld) [Entitic vol] 18.04 % 0.00-20.00 [facility] Monocytes Auto (Bld) [#/Vol] Ordered By: Jas Perdomo on 05-17-2023 Monocytes (Bld) [#/Vol] 0.5 10*3/uL 0.0-0.8 [facility] Monocytes/100 WBC Auto (Bld) Ordered By: Jas Perdomo on 05-17-2023 Monocytes/100 WBC (Bld) 4.7 % . [facility] Natriuretic peptide B [Mass/ Vol]Ordered By: Jas Perdomo on 05-17-2023 Natriuretic peptide B (Bld) [Mass/Vol] 30.0 pg/mL 5-100 [facility] Neutrophils Auto (Bld) [#/Vo l]Ordered By: Jas Perdomo on 05-17-2023 Neutrophils (Bld) [#/Vol] 6.3 10*3/uL 1.8-7.7 [facility] Neutrophils/100 WBC Auto (Bl d)Ordered By: Jas Perdomo on 05-17-2023 Neutrophils/100 WBC (Bld) 62.1 % . [facility] Nitrite Test strip Ql (U)Ord ered By: Jas Perdomo on 05-17-2023 Nitrite Ql (U) Negative Negative [facility] No Panel InformationOrdered By: Jas Perdomo on 05-17-2023 Estimated GFR (CKD-EPI) > 60.0 mL/Min [facility] Pharmacy Creatinine Clearance (Chem 152.94 [facility] Nucleated erythrocytes [Pres ence] in Blood by Automated countOrdered By: Jas Perdomo on 05-17-2023 Nucleated RBC Auto Ql (Bld) 0.0 /100{WBC} 0-0.5 [facility] Partial Thromboplastin Timeo n 05-17-2023 aPTT Coag (Bld) [Time] 29.0 s Normal 25.1-36.5 [facility] Comment on above: Result Comment: A he matocrit value greater than 55% may lead to inaccurate results in coagulation testing. Patients having hematocrit values >55% require a special collection tube for coagulation studies. Please contact the laboratory at [phone] for redraw instructions. PERFORMED BY: [facility] [address] [place] [address] PATHOLOGIST PLANT BIOLOGY PROFESSOR ESTELA MAYNARD M.D. Performed By: #### B GAS SPECIALIST, PT, HEPATIC, HS TROP, PTT, TSH3, CBC, BMP ####[facility] [id number] [place] [address] [facility] Platelet mean volume Auto (B ld) [Entitic vol]Ordered By: Jas Perdomo on 05-17-2023 Platelet mean volume (Bld) [Entitic vol] 9.3 fL 6.3-10.7 [facility] Platelets Auto (Bld) [#/Vol] Ordered By: Jas Perdomo on 05-17-2023 Platelets (Bld) [#/Vol] 306 10*3/uL 150-450 [facility] Potassium [Moles/volume] in Serum or PlasmaOrdered By: Jas Perdomo on 05-17-2023 Potassium [Moles/Vol] 3.6 mmol/L 3.5-5.1 [facility] Protein Auto test strip (U) [Mass/Vol]Ordered By: Jas Perdomo on 05-17-2023 Protein (U) [Mass/Vol] Negative Negative [facility] Protein [Mass/volume] in Ser um or PlasmaOrdered By: Jas Perdomo on 05-17-2023 Protein [Mass/Vol] 7.6 g/dL 6.4-8.9 [facility] Prothrombin Time INRon 05-17 INR Coag (PPP) [Relative time] 1.0 {INR} Normal [facility] Comment on above: Result Comment: INR Therapeutic Range A) Pre- and Peroperative OAT started two weeks before surgery. NOT HIP SURGERY: 1.5 - 2.5 HIP SURGERY: 2 - 3 B) Primary and secondary prevention of venous THROMBOSIS: 2 - 3 C) Active venous thrombosis, pulmonary embolism and prevention of recurrent venous thrombosis: 2 - 3 D) Prevention of arterial thromboembolism including patients with mechanical heart valves: 3 - 4.5 Performed By: #### B GAS SPECIALIST, PT, HEPATIC, HS TROP, PTT, TSH3, CBC, BMP ####[facility] [id number] PT Coag (PPP) [Time] 11.2 s Normal 9.0-12.9 [place] Comment on above: Result Comment: A he matocrit value greater than 55% may lead to inaccurate results in coagulation testing. Patients having hematocrit values >55% require a special collection tube for coagulation studies. Please contact the laboratory at [phone] for redraw instructions. Performed By: #### B GAS SPECIALIST, PT, HEPATIC, HS TROP, PTT, TSH3, CBC, BMP ####[facility] [id number] [place] [id number] [facility] Prothrombin time (PT)Ordered By: Jas Perdomo on 05-17-2023 PT Coag (PPP) [Time] 11.2 s 9.0-12.9 [place] Comment on above: A hematocrit value g reater than 55% may lead to inaccurate results in coagulation testing. Patients having hematocrit values >55% require a special collection tube for coagulation studies. Please contact the laboratory at [phone] for redraw instructions. RBC Auto (Bld) [#/Vol]Ordere d By: Jas Perdomo on 05-17-2023 RBC (Bld) [#/Vol] 4.76 10*6/uL 3.60-5.00 [facility] Serum or plasma albumin/glob ulin mass ratioOrdered By: Jas Perdomo on 05-17-2023 Albumin/Globulin [Mass ratio] 1.2 {ratio} [facility] Serum or plasma anion gap de terminationOrdered By: Jas Perdomo on 05-17-2023 Anion gap [Moles/Vol] 12.8 mmol/L 6.0-15.0 [facility] Serum or plasma non-glucuron idated bilirubin measurement (mass/volume)Ordered By: Jas Perdomo on 05-17-2023 Bilirubin.indirect [Mass/Vol] 0.2 mg/dL [facility] Sodium [Moles/volume] in Ser um or PlasmaOrdered By: Jas Perdomo on 05-17-2023 Sodium [Moles/Vol] 137 mmol/L 136-145 [facility] Specific gravity Auto test s trip (U) [Rel density]Ordered By: Jas Perdomo on 05-17-2023 Specific gravity (U) [Rel density] 1.021 1.001-1.03 0 [facility] Thyroid Stimulating Hormoneo n 05-17-2023 TSH Qn 3.13 m[IU]/L Normal 0.45-5.33 [facility] Comment on above: Result Comment: PERF ORMED BY: [facility] [address] [place] [address] PATHOLOGIST PLANT BIOLOG[employer] PROFESSOR ESTELA MAYNARD M.D. Performed By: #### B GAS SPECIALIST, PT, HEPATIC, HS TROP, PTT, TSH3, CBC, BMP ####[facility] [place] [id number] [facility] Thyrotropin [Units/volume] i n Serum or PlasmaOrdered By: Jas Perdomo on 05-17-2023 TSH Qn 3.13 m[IU]/L 0.45-5.33 [facility] Troponin I High Sensitivityo n 05-17-2023 Troponin I High Sensitivity < 2.3 Normal 0.0-15.0 [facility] Comment on above: Result Comment: PERF ORMED BY: [facility] [address] [place] [id number] PATHOLOGIST PLANT BIOLOG[employer] PROFESSOR ESTELA MAYNARD M.D. Performed By: #### B GAS SPECIALIST, PT, HEPATIC, HS TROP, PTT, TSH3, CBC, BMP ####[address] Troponin I.cardiac [Mass/vol ume] in Serum or Plasma by Detection limit <= 0.01 ng/Ordered By: Jas Perdomo on 05-17-2023 Troponin I.cardiac DL <= 0.01 ng/mL [Mass/Vol] < 2.3 pg/mL 0.0-15.0 [facility] Urea nitrogen [Mass/volume] in Serum or PlasmaOrdered By: Jas Perdomo on 05-17-2023 Urea nitrogen [Mass/Vol] 9 mg/dL 725 [facility] Urinalysison 05-17-2023 Appearance (U) Clear Normal Clear [facility] Comment on above: Order Comment: Name Collection Type:: Clean-Voided Midstream Performed By: #### U A ####[address] Bilirubin,Urine Negative Normal Negative [facility] Comment on above: Order Comment: Name Collection Type:: Clean-Voided Midstream Performed By: #### U A ####[place] [id number] [facility] Color (U) Yellow Normal Yellow [facility] Comment on above: Order Comment: Name Collection Type:: Clean-Voided Midstream Performed By: #### U A ####[place] [id number] [facility] Glucose Ql (U) Normal Normal Normal [facility] Comment on above: Order Comment: Name Collection Type:: Clean-Voided Midstream Performed By: #### U A ####[place] [id number] [facility] Ketones Ql (U) Negative Normal Negative [facility] Comment on above: Order Comment: Name Collection Type:: Clean-Voided Midstream Performed By: #### U A ####[place] [id number] [facility] Leukocyte esterase Test strip Ql (U) Negative Normal Negative [facility] Comment on above: Order Comment: Name Collection Type:: Clean-Voided Midstream Performed By: #### U A ####[address] Nitrite,Urine Negative Normal Negative [facility] Comment on above: Order Comment: Name Collection Type:: Clean-Voided Midstream Performed By: #### U A ####[place] [id number] [facility] Occult Blood,Urine Negative Normal Negative [facility] Comment on above: Order Comment: Name Collection Type:: Clean-Voided Midstream Result Comment: PERF ORMED BY: [facility] [address] [place] [address] PATHOLOGIST PLANT BIOLOG[employer] PROFESSOR ESTELA MAYNARD M.D. Performed By: #### U A ####[place] [id number] [facility] pH (U) 5.5 [pH] Normal 5.0-9.0 [facility] Comment on above: Order Comment: Name Collection Type:: Clean-Voided Midstream Performed By: #### U A ####[place] [id number] [facility] Protein,Urine Negative Normal Negative [facility] Comment on above: Order Comment: Name Collection Type:: Clean-Voided Midstream Performed By: #### U A ####[address] Specificy [place],Urine 1.021 Normal 1.001-1.03 0 [facility] Comment on above: Order Comment: Name Collection Type:: Clean-Voided Midstream Performed By: #### U A ####[place] [id number] [address] Urobilinogen,Urine Normal Normal Normal [facility] Comment on above: Order Comment: Name Collection Type:: Clean-Voided Midstream Performed By: #### U A ####[facility] [id number] Urine clarity by refractomet ry automatedOrdered By: Jas Perdomo on 05-17-2023 Clarity Refractometry automated (U) Clear Clear [facility] Urine glucose measurement by automated test strip (mass/volume)Ordered By: Jas Perdomo on 05-17-2023 Glucose Auto test strip (U) [Mass/Vol] Normal mg/dL Normal [facility] Urine hemoglobin detection b y automated test stripOrdered By: Jas Perdomo on 05-17-2023 Hemoglobin Auto test strip Ql (U) Negative Negative [facility] Urine leukocyte esterase det ection by automated test stripOrdered By: Jas Perdomo on 05-17-2023 Leukocyte esterase Auto test strip Ql (U) Negative Negative [facility] Urobilinogen Auto test strip (U) [Mass/Vol]Ordered By: Jas Perdomo on 05-17-2023 Urobilinogen (U) [Mass/Vol] Normal mg/dL Normal [facility] WBC Auto (Bld) [#/Vol]Ordere d By: Jas Perdomo on 05-17-2023 WBC (Bld) [#/Vol] 10.2 10*3/uL 3.8-11.6 [facility] pH Auto test strip (U)Ordere d By: Jas Perdomo on 05-17-2023 pH (U) 5.5 [pH] 5.0-9.0 [facility] ECG 12 lead ECGon 04-17-2023 ECG 12 lead ECG [facility] [address] [place] [address] [place] [address] Electrocardiograph Report Signed Patient: Ashley Velasquez MR#: [id number] 8 : 1995 Acct:[id number] Age/Sex: 28 / F ADM Date: 04/17/23 Loc: ER Room: Type: DEP ER Attending Dr: Ordering Provider: Apollo Malloy DO Date of Service: 04/17/2312/01/2121 ECG/ECG 12 lead ECG: Arrhythmia/Palpitations Copies to: Test Reason : Blood Pressure : 147/065 mmHG Vent. Rate : 095 BPM Atrial Rate : 095 BPM P-R Int : 136 ms QRS Dur : 088 ms QT Int : 358 ms P-R-T Axes : 067 028 033 degrees QTc Int : 449 ms Normal sinus rhythm Low voltage QRS Borderline ECG When compared with ECG of 13-MAR-2022 20:51, No significant change was found Confirmed by Gene Briseno ([id number]) on 04/18/2023 5:10:38 PM Referred By: Electronically Signed By:Gene Briseno Transcribed By: MUS Signed By Gene Briseno MD 04/18/23 1710 [facility] CT angio neckon 01-02-2023 CT angio neck [facility] [place] [address] CT Scan Report Signed Patient: Ashley Velasquez MR#: [id number] 8 : 1995 Acct:[id number] Age/Sex: 27 / F ADM Date: 01/01/23 Loc: ER Room: Type: [facility] ER Attending Dr: Copies to: Shaunna Prkaash MD Ordering Provider: Shaunna Prakash MD Date of Service: 01/01/23 CT/CT angio head: dizzy, blurry vision, sudden onset CABRERA ([id number]) CT/CT angio neck: dizzy, blurry vision, sudden onset CABRERA CTA Head and Neck TECHNIQUE: Axial imaging of the head and neck with 2-D and 3-D reconstruction. 90cc of Isovue-370. The CT exam was performed using one or more the following dose reduction techniques: Automated exposure control, adjustment of the MA and/or Kv according to patient size, or use of the iterative reconstruction technique. Stenoses were measured using the NASCET criteria. COMPARISON: None HISTORY: Blurred vision. Headache and nausea. The visualized aortic arch and great vessels are unremarkable. Subclavian arteries are patent No carotid dissection, critical stenosis or occlusion identified. No vertebral dissection, occlusion or abrupt cut off identified. The carotid siphons and vertebral basilar systems are patent. No intracranial aneurysm, dissection, abrupt cut off or critical stenosis identified.. . CT/CT angio head IMPRESSION: No occlusion, critical stenosis or dissection of the extracranial or intracranial circulation. Impression dictated by: Blu Tsang M.D.01/02/2023 9:13 AM Dictation Location: [place] [address] Transcribed By: [facility] 01/02/23912 Dictated By: Blu Tasng DO 01/02/23909 Signed By: 01/02/23912 [facility] CT head/brain wo conon 01-02 CT head/brain wo con [facility] [place] [address] CT Scan Report Signed Patient: Ashley Velasquez MR#: [id number] 8 : 1995 Acct:[id number] Age/Sex: 27 / F ADM Date: 01/01/23 Loc: ER Room: Type: [facility] ER Attending Dr: Copies to: Shaunna Prakash MD Ordering Provider: Shaunna Prakash MD Date of Service: 01/01/23 CT/CT head/brain wo con: dizzy, blurry vision, sudden onset CABRERA Unenhanced head CT TECHNIQUE: Contiguous axial imaging of the head. The CT exam was performed using one or more the following dose reduction techniques: Automated exposure control, adjustment of the MA and/or Kv according to patient size, or use of the iterative reconstruction technique. COMPARISON: None HISTORY: Blurred vision. Headache. VENTRICLES: Within normal limits ATROPHY: None BRAIN PARENCHYMA: Adequate donnelly-white matter differentiation identified. HEMORRHAGE: None HERNIATION: No mass effect or herniation INFARCTION: No recent vascular distribution infarction is seen. EXTRA-AXIAL FLUID COLLECTIONS None MIDBRAIN: Unremarkable ARLETTE: Unremarkable MEDULLA: Unremarkable SINUSES: Unremarkable ORBITS: Grossly unremarkable MASTOIDS: Unremarkable BONY STRUCTURES Intact ADDITIONAL FINDINGS: CT/CT head/brain wo con IMPRESSION: Unremarkable exam Impression dictated by: Blu Tsang M.D.01/02/2023 9:10 AM Dictation Location: [place] [address] Transcribed By: [facility] 01/02/23909 Dictated By: Blu Tsang DO 01/02/23908 Signed By: 01/02/23909 [facility] Activated partial thrombopla stin time (aPTT) in platelet poor plasma by coagulation aOrdered By: Shaunna Prakash on 01-01-2023 aPTT Coag (PPP) [Time] 26.8 s 25.1-36.5 [facility] Comment on above: A hematocrit value g reater than 55% may lead to inaccurate results in coagulation testing. Patients having hematocrit values >55% require a special collection tube for coagulation studies. Please contact the laboratory at [phone] for redraw instructions. Basic Metabolic Panelon 12-10 Anion gap [Moles/Vol] 10.5 mmol/L Normal 6.0-15.0 [facility] Comment on above: Performed By: #### B MP, PTT, HCGQUAL, PT, CBC #### [facility] [address] [place] [id number] [place] Calcium [Mass/Vol] 9.4 mg/dL Normal 8.6-10.3 [facility] Comment on above: Performed By: #### B MP, PTT, HCGQUAL, PT, CBC #### [facility] [address] [place] [address] [place] Chloride [Moles/Vol] 108 mmol/L High 98-107 [place] Comment on above: Performed By: #### B MP, PTT, HCGQUAL, PT, CBC #### [facility] [address] [place] [address] [place] CO2 [Moles/Vol] 24.3 mmol/L Normal 21.0-31.0 [facility] Comment on above: Performed By: #### B MP, PTT, HCGQUAL, PT, CBC #### [facility] [address] [place] [id number] [place] Creatinine [Mass/Vol] 0.80 mg/dL Normal 0.60-1.20 [facility] Comment on above: Performed By: #### B MP, PTT, HCGQUAL, PT, CBC #### [facility] [address] [place] [address] [place] Creatinine Clr Calc Pharmacy 115.60 [facility] Comment on above: Performed By: #### B MP, PTT, HCGQUAL, PT, CBC #### [facility] [address] [place] [address] [place] GFR/1.73 sq M.predicted MDRD (S/P/Bld) [Vol rate/Area] mL/min/{1.73_m2} [facility] Comment on above: Performed By: #### B MP, PTT, HCGQUAL, PT, CBC #### [address] Glucose [Mass/Vol] 83 mg/dL Normal 70-100 [facility] Comment on above: Result Comment: Formerly named [facility] Glucose Reference Range is dependent on time and content of last meal. Glucose of more than 200 mg/dL in a nonstressed, ambulatory subject supports the diagnosis of Diabetes Mellitus. ADA recommended reference range Performed By: #### B MP, PTT, HCGQUAL, PT, CBC #### [address] Potassium [Moles/Vol] 3.8 mmol/L Normal 3.5-5.1 [facility] Comment on above: Performed By: #### B MP, PTT, HCGQUAL, PT, CBC #### [facility] [address] [place] [address] [place] Sodium [Moles/Vol] 139 mmol/L Normal 136-145 [facility] Comment on above: Performed By: #### B MP, PTT, HCGQUAL, PT, CBC #### [facility] [address] [place] [address] [place] Urea nitrogen [Mass/Vol] 8 mg/dL Normal 7-25 [facility] Comment on above: Performed By: #### B MP, PTT, HCGQUAL, PT, CBC #### [facility] [address] [place] [address] [place] Basophils Auto (Bld) [#/Vol] Ordered By: Shaunna piedra 01-01-2023 Basophils (Bld) [#/Vol] 0.1 10*3/uL 0.0-0.2 [facility] Basophils/100 WBC Auto (Bld) Ordered By: Shaunna Prakash on 01-01-2023 Basophils/100 WBC (Bld) 0.7 % . [facility] Calcium [Mass/volume] in Ser um or PlasmaOrdered By: Shaunna Prakash on 01-01-2023 Calcium [Mass/Vol] 9.4 mg/dL 8.6-10.3 [facility] Carbon dioxide, total [Moles /volume] in Serum or PlasmaOrdered By: Shaunna Prakash on 01-01-2023 CO2 [Moles/Vol] 24.3 mmol/L 21.0-31.0 [facility] Chloride [Moles/volume] in S robert or PlasmaOrdered By: Shaunna Prakash on 01-01-2023 Chloride [Moles/Vol] 108 mmol/L 98-107 [place] Choriogonadotropin.beta subu nit [Units/volume] in Serum or PlasmaOrdered By: Shaunna Prakash on 01-01-2023 HCG.beta subunit Qn Negative [facility] Complete Blood Count Auto Di ffon 01-01-2023 Basophils (Bld) [#/Vol] 0.1 10*3/uL Normal 0.0-0.2 [facility] Comment on above: Result Comment: PERF ORMED BY: [facility] [address] [place] [address] PATHOLOGIST PLANT BIOLOG[employer] PROFESSOR ESTELA MAYNARD M.D. Performed By: #### B MP, PTT, HCGQUAL, PT, CBC #### [facility] [address] [place] [address] [place] Basophils/100 WBC (Bld) 0.7 % Normal . [facility] Comment on above: Performed By: #### B MP, PTT, HCGQUAL, PT, CBC #### [facility] [address] [place] [address] [place] Eosinophils (Bld) [#/Vol] 0.3 10*3/uL Normal 0.0-0.45 [facility] Comment on above: Performed By: #### B MP, PTT, HCGQUAL, PT, CBC #### [address] Eosinophils/100 WBC (Bld) 3.4 % Normal . [facility] Comment on above: Performed By: #### B MP, PTT, HCGQUAL, PT, CBC #### [address] Erythrocyte distribution width (RBC) [Ratio] 12.9 % Normal 11.9-15.3 [facility] Comment on above: Performed By: #### B MP, PTT, HCGQUAL, PT, CBC #### [address] Hematocrit (Bld) [Volume fraction] 39.8 % Normal 34.0-46.4 [facility] Comment on above: Performed By: #### B MP, PTT, HCGQUAL, PT, CBC #### [address] Hemoglobin (Bld) [Mass/Vol] 13.8 g/dL Normal 11.8-15.4 [facility] Comment on above: Performed By: #### B MP, PTT, HCGQUAL, PT, CBC #### [address] Lymphocytes (Bld) [#/Vol] 2.8 10*3/uL Normal 1.00-4.8 [facility] Comment on above: Performed By: #### B MP, PTT, HCGQUAL, PT, CBC #### [address] Lymphocytes/100 WBC (Bld) 28.1 % Normal . [facility] Comment on above: Performed By: #### B MP, PTT, HCGQUAL, PT, CBC #### [address] MCH (RBC) [Entitic mass] 29.1 pg Normal 24.7-34.3 [facility] Comment on above: Performed By: #### B MP, PTT, HCGQUAL, PT, CBC #### [address] MCV (RBC) [Entitic vol] 83.6 fL Normal 80-100 [facility] Comment on above: Performed By: #### B MP, PTT, HCGQUAL, PT, CBC #### [address] Mean Corpuscular HGB Conc 34.8 g/dL Normal 32.0-35.0 [facility] Comment on above: Performed By: #### B MP, PTT, HCGQUAL, PT, CBC #### [address] Monocytes (Bld) [#/Vol] 0.6 10*3/uL Normal 0.0-0.8 [facility] Comment on above: Performed By: #### B MP, PTT, HCGQUAL, PT, CBC #### [address] Monocytes/100 WBC (Bld) 19.28 % Normal 0.00-20.00 [facility] Comment on above: Performed By: #### B MP, PTT, HCGQUAL, PT, CBC #### [address] Monocytes/100 WBC (Bld) 5.6 % Normal . [facility] Comment on above: Performed By: #### B MP, PTT, HCGQUAL, PT, CBC #### [address] Neutrophils (Bld) [#/Vol] 6.2 10*3/uL Normal 1.8-7.7 [facility] Comment on above: Performed By: #### B MP, PTT, HCGQUAL, PT, CBC #### [address] Neutrophils/100 WBC (Bld) 62.2 % Normal . [facility] Comment on above: Performed By: #### B MP, PTT, HCGQUAL, PT, CBC #### [address] [place] [address] [place] NRBC% 0.1 /100{WBC} Normal 0-0.5 [facility] Comment on above: Performed By: #### B MP, PTT, HCGQUAL, PT, CBC #### [address] Platelet mean volume (Bld) [Entitic vol] 9.5 fL Normal 6.3-10.7 [facility] Comment on above: Performed By: #### B MP, PTT, HCGQUAL, PT, CBC #### [address] Platelets (Bld) [#/Vol] 249 10*3/uL Normal 150-450 [facility] Comment on above: Performed By: #### B MP, PTT, HCGQUAL, PT, CBC #### [address] RBC (Bld) [#/Vol] 4.76 10*6/uL Normal 3.60-5.00 [facility] Comment on above: Performed By: #### B MP, PTT, HCGQUAL, PT, CBC #### [address] WBC (Bld) [#/Vol] 10.0 10*3/uL Normal 3.8-11.6 [facility] Comment on above: Performed By: #### B MP, PTT, HCGQUAL, PT, CBC #### [address] Creatinine [Mass/volume] in Serum or PlasmaOrdered By: Shaunna Prakash on 01-01-2023 Creatinine [Mass/Vol] 0.80 mg/dL 0.60-1.20 [facility] Eosinophils Auto (Bld) [#/Vo l]Ordered By: Shaunna Prakash on 01-01-2023 Eosinophils (Bld) [#/Vol] 0.3 10*3/uL 0.0-0.45 [facility] Eosinophils/100 WBC Auto (Bl d)Ordered By: Shaunna Prakash on 01-01-2023 Eosinophils/100 WBC (Bld) 3.4 % . [facility] Erythrocyte distribution wid th Auto (RBC) [Ratio]Ordered By: Shaunna Prakash on 01-01-2023 Erythrocyte distribution width (RBC) [Ratio] 12.9 % 11.9-15.3 [facility] Glucose [Mass/volume] in Ser um or PlasmaOrdered By: Shaunna Prakash on 01-01-2023 Glucose [Mass/Vol] 83 mg/dL 70-100 [facility] Comment on above: ADA recommended refe rence rangeRandom Glucose Reference Range is dependent on time and content of last meal. Glucose of more than 200 mg/dL in a nonstressed, ambulatory subject supports the diagnosis of Diabetes Mellitus. HCG,Qualitative Serumon 12-10 HCG,Qualitative Serum Negative Normal [facility] Comment on above: Result Comment: PERF ORMED BY: [place] [address] PATHOLOGIST PLANT BIOLOGY PROFESSOR ESTELA MAYNARD M.D. Performed By: #### B MP, PTT, HCGQUAL, PT, CBC #### [address] Hematocrit Auto (Bld) [Volum e fraction]Ordered By: Shaunna Prakash on 01-01-2023 Hematocrit (Bld) [Volume fraction] 39.8 % 34.0-46.4 [facility] Hemoglobin [Mass/volume] in BloodOrdered By: Shaunna Prakash on 01-01-2023 Hemoglobin (Bld) [Mass/Vol] 13.8 g/dL 11.8-15.4 [facility] INR in Platelet poor plasma by Coagulation assayOrdered By: Shaunna Prakash on 01-01-2023 INR Coag (PPP) [Relative time] 1.0 {INR} [facility] Comment on above: INR Therapeutic Rang e A) Pre- and Peroperative OAT started two weeks before surgery. NOT HIP SURGERY: 1.5 - 2.5 HIP SURGERY: 2 - 3B) Primary and secondary prevention of venous THROMBOSIS: 2 - 3C) Active venous thrombosis, pulmonary embolismand prevention of recurrent venous thrombosis: 2 - 3D) Prevention of arterial thromboembolismincluding patients with mechanical heart valves: 3 - 4.5 Leukocytes [#/volume] correc gilbert for nucleated erythrocytes in Blood by Automated counOrdered By: Shaunna Prakash on 01-01-2023 WBC corrected for nucl RBC Auto (Bld) [#/Vol] 10.0 10*3/uL 3.8-11.6 [facility] Lymphocytes Auto (Bld) [#/Vo l]Ordered By: Shaunna Prakash on 01-01-2023 Lymphocytes (Bld) [#/Vol] 2.8 10*3/uL 1.00-4.8 [facility] Lymphocytes/100 WBC Auto (Bl d)Ordered By: Shaunna Prakash on 01-01-2023 Lymphocytes/100 WBC (Bld) 28.1 % . [facility] MCH Auto (RBC) [Entitic mass ]Ordered By: Shaunna Prakash on 01-01-2023 MCH (RBC) [Entitic mass] 29.1 pg 24.7-34.3 [facility] MCHC Auto (RBC) [Mass/Vol]Or dered By: Shaunna Prakash on 01-01-2023 MCHC (RBC) [Mass/Vol] 34.8 g/dL 32.0-35.0 [facility] MCV Auto (RBC) [Entitic vol] Ordered By: Shaunna Prakash on 01-01-2023 MCV (RBC) [Entitic vol] 83.6 fL 80-100 [facility] Monocyte distribution width [Entitic volume] in Blood by AutomatedOrdered By: Shaunna Prakash on 01-01-2023 Monocyte distribution width Auto (Bld) [Entitic vol] 19.28 % 0.00-20.00 [facility] Monocytes Auto (Bld) [#/Vol] Ordered By: Shaunna Prakash on 01-01-2023 Monocytes (Bld) [#/Vol] 0.6 10*3/uL 0.0-0.8 [facility] Monocytes/100 WBC Auto (Bld) Ordered By: Shaunna Prakash on 01-01-2023 Monocytes/100 WBC (Bld) 5.6 % . [facility] Neutrophils Auto (Bld) [#/Vo l]Ordered By: Shaunna Prakash on 01-01-2023 Neutrophils (Bld) [#/Vol] 6.2 10*3/uL 1.8-7.7 [facility] Neutrophils/100 WBC Auto (Bl d)Ordered By: Shaunna Prakash on 01-01-2023 Neutrophils/100 WBC (Bld) 62.2 % . [facility] No Panel InformationOrdered By: Shaunna Prakash on 01-01-2023 Estimated GFR (CKD-EPI) > 60.0 mL/Min [facility] Creatinine Clearance (Chem 115.60 [facility] Nucleated erythrocytes [Pres ence] in Blood by Automated countOrdered By: Shaunna Prakash on 01-01-2023 Nucleated RBC Auto Ql (Bld) 0.1 /100{WBC} 0-0.5 [facility] Partial Thromboplastin Timeo n 01-01-2023 aPTT Coag (Bld) [Time] 26.8 s Normal 25.1-36.5 [facility] Comment on above: Result Comment: A he matocrit value greater than 55% may lead to inaccurate results in coagulation testing. Patients having hematocrit values >55% require a special collection tube for coagulation studies. Please contact the laboratory at [phone] for redraw instructions. PERFORMED BY: [place] [address] PATHOLOGIST PLANT BIOLOGY PROFESSOR ESTELA MAYNARD M.D. Performed By: #### B MP, PTT, HCGQUAL, PT, CBC #### [address] Platelet mean volume Auto (B ld) [Entitic vol]Ordered By: Shaunna Prakash on 01-01-2023 Platelet mean volume (Bld) [Entitic vol] 9.5 fL 6.3-10.7 [facility] Platelets Auto (Bld) [#/Vol] Ordered By: Shaunna Prakash on 01-01-2023 Platelets (Bld) [#/Vol] 249 10*3/uL 150-450 [facility] Potassium [Moles/volume] in Serum or PlasmaOrdered By: Shaunna Prakash on 01-01-2023 Potassium [Moles/Vol] 3.8 mmol/L 3.5-5.1 [facility] Prothrombin Time INRon 01-01 INR Coag (PPP) [Relative time] 1.0 {INR} Normal [facility] Comment on above: Result Comment: INR Therapeutic Range A) Pre- and Peroperative OAT started two weeks before surgery. NOT HIP SURGERY: 1.5 - 2.5 HIP SURGERY: 2 - 3 B) Primary and secondary prevention of venous THROMBOSIS: 2 - 3 C) Active venous thrombosis, pulmonary embolism and prevention of recurrent venous thrombosis: 2 - 3 D) Prevention of arterial thromboembolism including patients with mechanical heart valves: 3 - 4.5 Performed By: #### B MP, PTT, HCGQUAL, PT, CBC #### [facility] [address] [place] [id number] [facility] Coag (PPP) [Time] 12.4 s Normal 9.0-12.9 [place] Comment on above: Result Comment: A he matocrit value greater than 55% may lead to inaccurate results in coagulation testing. Patients having hematocrit values >55% require a special collection tube for coagulation studies. Please contact the laboratory at [phone] for redraw instructions. Performed By: #### B MP, PTT, HCGQUAL, PT, CBC #### [facility] [address] [place] [place] [id number] [facility] Prothrombin time (PT)Ordered By: Shaunna Prakash on 01-01-2023 PT Coag (PPP) [Time] 12.4 s 9.0-12.9 [place] Comment on above: A hematocrit value g reater than 55% may lead to inaccurate results in coagulation testing. Patients having hematocrit values >55% require a special collection tube for coagulation studies. Please contact the laboratory at [phone] for redraw instructions. RBC Auto (Bld) [#/Vol]Ordere d By: Shaunna Prakash on 01-01-2023 RBC (Bld) [#/Vol] 4.76 10*6/uL 3.60-5.00 [facility] Serum or plasma anion gap de terminationOrdered By: Shaunna Prakash on 01-01-2023 Anion gap [Moles/Vol] 10.5 mmol/L 6.0-15.0 [facility] Sodium [Moles/volume] in Ser um or PlasmaOrdered By: Shaunna Prakash on 01-01-2023 Sodium [Moles/Vol] 139 mmol/L 136-145 [facility] Urea nitrogen [Mass/volume] in Serum or PlasmaOrdered By: Shaunna Prakash on 01-01-2023 Urea nitrogen [Mass/Vol] 8 mg/dL 7-25 [facility] WBC Auto (Bld) [#/Vol]Ordere d By: Shaunna Prakash on 01-01-2023 WBC (Bld) [#/Vol] 10.0 10*3/uL 3.8-11.6 [facility] Quantiferon-TB Plus (Client Incubated)on 11-23-2022 Gamma interferon background IA Qn (Bld) 0.01 International_Unit/mL Invalid Interpretation Code [facility] Comment on above: Performed By: #### 1 [id number] #### [facility] [address] [place] [address] M. tuberculosis stim IFN-g by CD4+ CD8+ T-cells Qn (Bld) 0.25 International_Unit/mL Invalid Interpretation Code [facility] Comment on above: Performed By: #### 1 [id number] #### [facility] [address] [place] [address] M. tuberculosis stim IFN-g by CD4+ T-cells Qn (Bld) 0.26 International_Unit/mL Invalid Interpretation Code [facility] Comment on above: Performed By: #### 1 [id number] #### [facility] [address] [place] [address] M. tuberculosis stim IFN-g Ql (Bld) [Interp] Negative Invalid Interpretation Code Negative [facility] Comment on above: Result Comment: No r esponse to M tuberculosis antigens detected. Infection with M tuberculosis is unlikely, but high risk individuals should be considered for additional testing (ATS/IDSA/CDC Clinical Practice Guidelines, 2017). The reference range is an Antigen minus Nil result of <0.35 IU/mL. The specimen received for QuantiFERON testing was incubated by the ordering institution. Specific procedures outlined in our Directory of Services and in the package insert for the QuantiFERON Gold (In Tube) test must be followed to enable for proper stimulation of cells for the production of interferon gamma. Chemiluminescence immunoassay methodology Performed at: [facility] [id number] PhD Jaden Canchola Performed By: #### 1 [id number] #### [facility] [address] [place] [address] Mitogen stimulated gamma interferon Qn (Bld) >10.00 Invalid Interpretation Code [facility] Comment on above: Performed By: #### 1 [id number] #### [facility] [address] [place] [address] Service comment (Unsp spec) [Interp] Comment Invalid Interpretation Code [facility] Comment on above: Result Comment: Navjot tiFERON-TB Gold Plus is a qualitative indirect test for M tuberculosis infection (including disease) and is intended for use in conjunction with risk assessment, radiography, and other medical and diagnostic evaluations. The QuantiFERON-TB Gold Plus result is determined by subtracting the Nil value from either TB antigen (Ag) value. The Mitogen tube serves as a control for the test. Performed By: #### 1 [id number] #### [facility] [address] [place] [address] [place]enton 11-17-2022 Consent [id number]:1 27 Normal [facility] Registrationon 11-17-2022 Registration [id number]:1 27 Normal [facility] Hep Bs Abon 11-16-2022 HBV surface Ab Ql (S) Non-Reactive Invalid Interpretation Code [facility] Comment on above: Result Comment: Non Reactive: Inconsistent with immunity, less than 10 mIU/mL Reactive: Consistent with immunity, greater than 9.9 mIU/mL Performed at: [facility] [address] [place], [place] [id number] PhD Jaden Canchola Performed By: #### 1 [id number], [id number], [id number], [id number] #### [facility] [address] [place] [address] Measles/Mumps/Rubella Immuni tyon 11-16-2022 MeV IgG IA Qn (S) 85.1 A unit/mL Invalid Interpretation Code Immune >16.4 [facility] Comment on above: Result Comment: Nega tive <13.5 Equivocal 13.5 - 16.4 Positive >16.4 Presence of antibodies to Rubeola is presumptive evidence of immunity except when acute infection is suspected. Performed By: #### 1 [id number], [id number] #### [facility] [address] [place] [address] MuV IgG IA Qn (S) 36.1 A unit/mL Invalid Interpretation Code Immune >10.9 [facility] Comment on above: Result Comment: Nega tive <9.0 Equivocal 9.0 - 10.9 Positive >10.9 A positive result generally indicates past exposure to Mumps virus or previous vaccination. Performed at: [facility] [id number] PhD Jaden Canchola Performed By: #### 1 [id number], [id number], [id number] #### [facility] [address] [place] [address] Rubella virus IgG Qn (S) 20.90 [IU]/mL Invalid Interpretation Code Immune >0.99 [facility] Comment on above: Result Comment: Non- immune <0.90 Equivocal 0.90 - 0.99 Immune >0.99 Performed By: #### 1 [id number], [id number], [id number] #### [facility] [address] [place] [address] Quantiferon-TB Plus (Client Incubated)on 11-16-2022 Gamma interferon background IA Qn (Bld) 0.00 International_Unit/mL Invalid Interpretation Code [facility] Comment on above: Performed By: #### 1 [id number], [id number], [id number] #### [facility] [address] [place] [address] M. tuberculosis stim IFN-g by CD4+ CD8+ T-cells Qn (Bld) 0.45 International_Unit/mL Invalid Interpretation Code [facility] Comment on above: Performed By: #### 1 [id number], [id number], [id number], [id number] #### [facility] [address] [place] [address] M. tuberculosis stim IFN-g by CD4+ T-cells Qn (Bld) 0.38 International_Unit/mL Invalid Interpretation Code [facility] Comment on above: Performed By: #### 1 [id number], [id number], [id number] #### [facility] [address] [place] [address] M. tuberculosis stim IFN-g Ql (Bld) [Interp] Positive Abnormal Negative [facility] Comment on above: Result Comment: A re sponse to M tuberculosis antigens has been detected. If patient is at low risk for Tuberculosis, the result should be interpreted with caution and repeat testing on a new specimen is recommended (ATS/IDSA/CDC Clinical Practice Guidelines, 2017). False positives can also occur due to infection by M kansasii, M szulgai, or M marinum. The specimen received for QuantiFERON testing was incubated by the ordering institution. Specific procedures outlined in our Directory of Services and in the package insert for the QuantiFERON Gold (In Tube) test must be followed to enable for proper stimulation of cells for the production of interferon gamma. Chemiluminescence immunoassay methodology Performed at: [address] [id number] PhD Jaden Canchola Performed By: #### 1 [id number], [id number], [id number], [id number] #### [facility] [address] [place] [address] Mitogen stimulated gamma interferon Qn (Bld) >10.00 Invalid Interpretation Code [facility] Comment on above: Performed By: #### 1 [id number], [id number], [id number], [id number] #### [facility] [address] [place] [address] Service comment (Unsp spec) [Interp] Comment Invalid Interpretation Code [facility] Comment on above: Result Comment: Navjot tiFERON-TB Gold Plus is a qualitative indirect test for M tuberculosis infection (including disease) and is intended for use in conjunction with risk assessment, radiography, and other medical and diagnostic evaluations. The QuantiFERON-TB Gold Plus result is determined by subtracting the Nil value from either TB antigen (Ag) value. The Mitogen tube serves as a control for the test. Performed By: #### 1 [id number], [id number], [id number], [id number] #### [facility] [address] [place] [address] Varic IgGon 11-16-2022 VZV IgG IA Qn (S) 756 Invalid Interpretation Code Immune >165 [facility] Comment on above: Result Comment: Nega tive <135 Equivocal 135 - 165 Positive >165 A positive result generally indicates exposure to the pathogen or administration of specific immunoglobulins, but it is not indication of active infection or stage of disease. Performed at: [facility] [id number] PhD Jaden Canchola Performed By: #### 1 [id number], [id number], [id number] #### [facility] [address] [place] [address] IGP,Aptima HPV,CtNg Age Gdln on 09-21-2022 IGP, Age Gdln Note Normal . [facility] Comment on above: Order Comment: Reaso n for Exam Well female exam with routine gynecological exam Specimen Comment: [id number] Result Comment: TEST S RESULT FLAG UNITS REF RANGE LAB Clinician Provided Cytology Information No. of containers..01 ThinPrep Vial Age Algo ACOG Lois... FLAG LEGEND: L-Low Normal,H-High Normal,LL-Alert Low,HH-Alert High <-Panic Low,>-Panic High,A-Abnormal,AA-Critical Abnormal Performed at: 01 =G [facility] [address] [address] Ranjana Pandya MD, Performed By: #### P AP [id number] #### [facility] , Pap Image Guided Note Normal . [facility] Comment on above: Order Comment: Reaso n for Exam Well female exam with routine gynecological exam Specimen Comment: [id number] Result Comment: TEST S RESULT FLAG UNITS REF RANGE LAB DIAGNOSIS: 02 NEGATIVE FOR INTRAEPITHELIAL LESION OR MALIGNANCY. Specimen adequacy: 02 Satisfactory for evaluation. Endocervical and/or squamous metaplastic cells (endocervical component) are present. Performed by: John Roldan, Fryer Operator ([facility]) . 02 Note: Note 02 The Pap smear is a screening test designed to aid in the detection of premalignant and malignant conditions of the uterine cervix. It is not a diagnostic procedure and should not be used as the sole means of detecting cervical cancer. Both false-positive and false-negative reports do occur. Test Methodology: Note 02 This liquid based ThinPrep(R) pap test was screened with the use of an image guided system. . 02 The HPV DNA reflex criteria were not met with this specimen result therefore, no HPV testing was performed. FLAG LEGEND: L-Low Normal,H-High Normal,LL-Alert Low,HH-Alert High <-Panic Low,>-Panic High,A-Abnormal,AA-Critical Abnormal Performed at: [address] [address] Ranjana Pandya MD, Performed at: = - [facility] [id number] Design Printer Balloon: Ranjana Pandya MD, Phone: [phone] Performed at: [facility] [id number] Design Printer Balloon: Ranjana Pandya MD, Phone: [phone] PERFORMED BY: [address] [place] [address] PATHOLOGIST PLANT BIOLOGY PROFESSOR ESTELA MAYNARD M.D. Performed By: #### P AP [id number] #### [facility] , COVID + FLU Quick Testingon 05-11-2022 SARS-CoV-2 (COVID-19) RNA JOSIE+probe Ql (Unsp spec) Negative [facility] Other COVID + FLU Quick Testing Negative [facility] Other Quick Strepon 05-11-2022 S. pyogenes Org specific cx Ql (Throat) Positive [facility] Other Quick Strep [facility] Other Basophils Auto (Bld) [#/Vol] Ordered By: Dania Santo on 12-10-2021 Basophils (Bld) [#/Vol] 0.0 10*3/uL 0.0-0.2 [facility] Basophils/100 WBC Auto (Bld) Ordered By: Dania Santo on 12-10-2021 Basophils/100 WBC (Bld) 0.3 % . [facility] Blood hemoglobin measurement (mass/volume)Ordered By: Dania Santo on 12-10-2021 Hemoglobin (Bld) [Mass/Vol] 13.7 g/dL 11.8-15.4 [facility] Blood leukocytes automated c ount (number/volume)Ordered By: Dania Santo on 12-10-2021 WBC (Bld) [#/Vol] 10.5 10*3/uL 4.5-11.0 [facility] Body fluid albumin measureme nt (mass/volume)Ordered By: Dania Santo on 12-10-2021 Albumin (Body fld) [Mass/Vol] 4.1 g/dL 3.2-5.5 [facility] C reactive protein [Mass/vol ume] in Serum or PlasmaOrdered By: Dania Santo on 12-10-2021 CRP [Mass/Vol] See comment 0.0-1.0 [facility] Comment on above: TEST PERFORMED AT [facility] SEE REPORT CT biopsyOrdered By: Tom Santo on 12-10-2021 CT biopsy See comment [id number] [facility] [facility] Comment on above: TEST PERFORMED AT [employer] SEE REPORT Creatinine and Glomerular fi ltration rate.predicted panel (S/P/Bld)Ordered By: Dania Santo on 12-10-2021 Creatinine [Mass/Vol] 0.79 mg/dL 0.44-1.03 [facility] Eosinophils Auto (Bld) [#/Vo l]Ordered By: Dania Santo on 12-10-2021 Eosinophils (Bld) [#/Vol] 0.0 10*3/uL 0.0-0.45 [facility] Eosinophils/100 WBC Auto (Bl d)Ordered By: Dania Santo on 12-10-2021 Eosinophils/100 WBC (Bld) 0.2 % . [facility] Erythrocyte distribution wid th Auto (RBC) [Ratio]Ordered By: Dania Santo on 12-10-2021 Erythrocyte distribution width (RBC) [Ratio] 13.7 % 11.9-15.3 [facility] Erythrocyte sedimentation ra te by Photometric methodOrdered By: Dania Santo on 12-10-2021 ESR Photometric method (Bld) [Velocity] 29 mm/hr 0-19 [facility] Estimated glomerular filtrat ion rate (GFR) non- AmericanOrdered By: Dania Santo on 12-10-2021 GFR/1.73 sq M.predicted among non-blacks MDRD (S/P/Bld) [Vol rate/Area] > 60 mL/Min [facility] Ferritin [Mass/volume] in Se rum or PlasmaOrdered By: Dania Santo on 12-10-2021 Ferritin [Mass/Vol] 47.6 ng/mL 11-306.8 [facility] Folate [Mass/volume] in Seru m or PlasmaOrdered By: Dania Santo on 12-10-2021 Folate [Mass/Vol] 6.2 ng/mL >5.9 [facility] Comment on above: Folate reference ran ge: >5.9 ng/ml The WHO technical consultation on folate and vitamin b12 deficiencies has determined that folate concentrations less than 4 ng/ml are considered deficient. Globulin Calc (S) [Mass/Vol] Ordered By: Dania Santo on 12-10-2021 Globulin (S) [Mass/Vol] 3.2 g/dL [facility] Hematocrit Auto (Bld) [Volum e fraction]Ordered By: Dania Santo on 12-10-2021 Hematocrit (Bld) [Volume fraction] 41.1 % 34.0-46.4 [facility] Iron [Mass/volume] in Serum or PlasmaOrdered By: Dania Santo on 12-10-2021 Iron [Mass/Vol] 86 ug/dL 40-150 [facility] Iron binding capacity [Mass/ volume] in Serum or PlasmaOrdered By: Dania Santo on 12-10-2021 Iron binding capacity [Mass/Vol] [facility] Comment on above: Test not performed Iron saturation [Mass Fracti on] in Serum or PlasmaOrdered By: Dania Santo on 12-10-2021 Iron saturation [Mass fraction] [facility] Comment on above: Test not performed Laboratory - Chemistry and C hemistry - challengeOrdered By: Dania Santo on 12-10-2021 Cobalamin (Vitamin B12) [Mass/Vol] 216 pg/mL 180-914 [facility] Laboratory - Hematology and Cell countsOrdered By: Dania Santo on 12-10-2021 Nucleated RBC/100 WBC (Bld) [Ratio] 0.0 % 0-0.5 [facility] Lymphocytes Auto (Bld) [#/Vo l]Ordered By: Dania Santo on 12-10-2021 Lymphocytes (Bld) [#/Vol] 3.0 10*3/uL 1.00-4.8 [facility] Lymphocytes/100 WBC Auto (Bl d)Ordered By: Dania Santo on 12-10-2021 Lymphocytes/100 WBC (Bld) 28.4 % . [facility] MCH Auto (RBC) [Entitic mass ]Ordered By: Dania Santo on 12-10-2021 MCH (RBC) [Entitic mass] 27.7 pg 24.7-34.3 [facility] MCHC Auto (RBC) [Mass/Vol]Or dered By: Dania Santo on 12-10-2021 MCHC (RBC) [Mass/Vol] 33.4 g/dL 32.0-35.0 [facility] MCV Auto (RBC) [Entitic vol] Ordered By: Dania Santo on 12-10-2021 MCV (RBC) [Entitic vol] 82.7 fL 80-100 [facility] Monocytes Auto (Bld) [#/Vol] Ordered By: Dania Santo on 12-10-2021 Monocytes (Bld) [#/Vol] 0.8 10*3/uL 0.0-0.8 [facility] Monocytes/100 WBC Auto (Bld) Ordered By: Dania Santo on 12-10-2021 Monocytes/100 WBC (Bld) 7.6 % . [facility] Neutrophils Auto (Bld) [#/Vo l]Ordered By: Dania Santo on 12-10-2021 Neutrophils (Bld) [#/Vol] 6.7 10*3/uL 1.8-7.7 [facility] Neutrophils/100 WBC Auto (Bl d)Ordered By: Dania Santo on 12-10-2021 Neutrophils/100 WBC (Bld) 63.5 % . [facility] No Panel InformationOrdered By: Dania Santo on 12-10-2021 25-Hydroxy Vitamin D Total 27.5 ng/mL 30-100 [facility] Comment on above: VITAMIN D STATUS 25( [place])VITAMIN D RANGE (ng/mL) Deficient <20 Insufficient 20 to <30 Sufficient 30 to 100 Reference: Altagracia MF,Nakul NC, Loco CABRERA, et al. Evaluation,treatment, and prevention of vitamin D deficiency; an Endocrine Society clinical practice guideline. JCEM. 2010; 96(7):1911-30. Estimated GFR () > 60 mL/Min [facility] Comment on above: GFR estimated refere nce range: According to KDOQI guidelines, <60 ml/min/1.73m2 is sufficient to diagnose a patient with chronic kidney disease. Pharmacy Creatinine Clearance (Chem N/A [facility] Platelet mean volume Auto (B ld) [Entitic vol]Ordered By: Dania Santo on 12-10-2021 Platelet mean volume (Bld) [Entitic vol] 9.7 fL 6.3-10.7 [facility] Platelets Auto (Bld) [#/Vol] Ordered By: Dania Santo on 12-10-2021 Platelets (Bld) [#/Vol] 322 10*3/uL 150-450 [facility] Protein [Mass/volume] in Ser um or PlasmaOrdered By: Dania Santo on 12-10-2021 Protein [Mass/Vol] 7.3 g/dL 6.1-7.9 [facility] RBC Auto (Bld) [#/Vol]Ordere d By: Dania Santo on 12-10-2021 RBC (Bld) [#/Vol] 4.97 10*6/uL 3.60-5.00 [facility] Serum homogeneous pattern an tinuclear antibody (NORM) titerOrdered By: Dania Santo on 12-10-2021 Homogenous nuclear Ab pattern (S) [Titer] N/A [facility] Serum or plasma alanine angulo otransferase measurement without P-5'-P (enzymatic activiOrdered By: Dania Santo on 12-10-2021 ALT No additional P-5'-P [Catalytic activity/Vol] 29 U/L 10-60 [facility] Serum or plasma albumin/glob ulin mass ratioOrdered By: Dania Santo on 12-10-2021 Albumin/Globulin [Mass ratio] 1.3 {ratio} [facility] Serum or plasma alkaline elsy sphatase measurement (enzymatic activity/volume)Ordered By: Dania Santo on 12-10-2021 ALP [Catalytic activity/Vol] 48 U/L 32-92 [facility] Serum or plasma anion gap de terminationOrdered By: Dania Santo on 12-10-2021 Anion gap [Moles/Vol] 14.8 mmol/L 6.0-15.0 [facility] Serum or plasma aspartate am inotransferase measurement (enzymatic activity/volume)Ordered By: Dania Santo on 12-10-2021 AST [Catalytic activity/Vol] 20 U/L 10-42 [facility] Serum or plasma calcium abdiel urement (mass/volume)Ordered By: Dania Santo on 12-10-2021 Calcium [Mass/Vol] 9.9 mg/dL 8.2-10.2 [facility] Serum or plasma chloride jacinda surement (moles/volume)Ordered By: Dania Santo on 12-10-2021 Chloride [Moles/Vol] 103 mmol/L 95-114 [place] Serum or plasma glucose abdiel urement (mass/volume)Ordered By: Dania Santo on 12-10-2021 Glucose [Mass/Vol] 75 mg/dL 70-100 [facility] Comment on above: ADA recommended refe rence range Random Glucose Reference Range is dependent on time and content of last meal. Glucose of more than 200 mg/dL in a nonstressed, ambulatory subject supports the diagnosis of Diabetes Mellitus. Serum or plasma potassium me asurement (moles/volume)Ordered By: Dania Santo on 12-10-2021 Potassium [Moles/Vol] 3.6 mmol/L 3.5-5.1 [facility] Serum or plasma rheumatoid f actor measurement (units/volume)Ordered By: Dania Santo on 12-10-2021 Rheumatoid factor Qn [IU]/mL <14.0 [place] Comment on above: Performed at: [address] [id number] [employer]: Sushant Stanley PhD, Phone: [phone] Serum or plasma sodium measu rement (moles/volume)Ordered By: Dania Santo on 12-10-2021 Sodium [Moles/Vol] 139 mmol/L 136-146 [facility] Serum or plasma total biliru bin measurement (mass/volume)Ordered By: Dania Santo on 12-10-2021 Bilirubin [Mass/Vol] 0.6 mg/dL 0.3-1.2 [place] Serum or plasma total carbon dioxide measurement (moles/volume)Ordered By: Dania Santo on 12-10-2021 CO2 [Moles/Vol] 24.8 mmol/L 22.0-30.0 [facility] Serum or plasma urea nitroge n measurement (mass/volume)Ordered By: Dania Santo on 12-10-2021 Urea nitrogen [Mass/Vol] 10 mg/dL 9-23 [facility] Serum or plasma uric acid me asurement (mass/volume)Ordered By: Dania Santo on 12-10-2021 Urate [Mass/Vol] 5.2 mg/dL 2.6-7.2 [facility] TSH DL <= 0.005 mIU/L QnOrde red By: Dania Santo on 12-10-2021 TSH Qn 2.03 m[IU]/L 0.45-5.33 [facility] Thyroxine (T4) free [Mass/vo lume] in Serum or PlasmaOrdered By: Dania Santo on 12-10-2021 Free T4 [Mass/Vol] 0.84 ng/dL 0.61-1.12 [facility] HEMOGLOBINon 09-17-2021 Hemoglobin (Bld) [Mass/Vol] 13.2 g/dL Normal 12.0-16.0 [facility] Comment on above: Performed By: #### H GB #### [facility] [address] [address] [address] Armand PEREZ Quick Testingon 2020 Result Negative [employer] Other Vital Signs Date Time Vital Sign Value Performing Clinician Facility 05-17-2023 19:02-0500 Heart rate 74 /min [facility] Work Phone: [facility] 05-17-2023 19:00-0500 Diastolic blood pressure 56 mm[Hg] Services [facility] [employer] Work Phone: [facility] 05-17-2023 19:00-0500 Respiratory rate 20 /min [facility] [employer] Work Phone: [facility] 05-17-2023 19:00-0500 SaO2% (BldA) [Mass fraction] 99 % [facility] Work Phone: [facility] 05-17-2023 19:00-0500 Systolic blood pressure 107 mm[Hg] [facility] [employer] Work Phone: [facility] 05-17-2023 17:50-0500 Body temperature 97.8 [degF] [facility] Work Phone: [facility] 05-17-2023 17:22-0500 Body height 157.48 cm [facility] Work Phone: [facility] 05-17-2023 17:22-0500 Body weight 97 kg [facility] [employer] Work Phone: [facility] 04-17-2023 21:23-0500 Heart rate 95 /min Services [facility] [employer] Work Phone: [facility] 04-17-2023 21:21-0500 Body height 158.75 cm Services [employer] Work Phone: [facility] 04-17-2023 21:21-0500 Body temperature 98.8 [degF] Services [facility] [employer] Work Phone: [facility] 04-17-2023 21:21-0500 Body weight 94.8 kg Services [facility] [employer] Work Phone: [facility] 04-17-2023 21:21-0500 Diastolic blood pressure 65 mm[Hg] [facility] [employer] Work Phone: [facility] 04-17-2023 21:21-0500 Respiratory rate 18 /min [facility] Work Phone: [facility] 04-17-2023 21:21-0500 SaO2% (BldA) [Mass fraction] 99 % [facility] Work Phone: [facility] 04-17-2023 21:21-0500 Systolic blood pressure 147 mm[Hg] Services [facility] [employer] Work Phone: [facility] 01-01-2023 22:30-0400 Heart rate 66 /min PHYSICIAN NO [facility] 01-01-2023 22:30-0400 Respiratory rate 20 /min PHYSICIAN NO [facility] 01-01-2023 22:30-0400 SaO2% (BldA) [Mass fraction] 99 % PHYSICIAN NO [facility] 01-01-2023 21:00-0400 Diastolic blood pressure 78 mm[Hg] PHYSICIAN NO [facility] 01-01-2023 21:00-0400 Systolic blood pressure 133 mm[Hg] PHYSICIAN NO [facility] 01-01-2023 18:50-0400 Body height 160.02 cm PHYSICIAN NO [facility] 01-01-2023 18:50-0400 Body temperature 98.5 [degF] PHYSICIAN NO [facility] 01-01-2023 18:50-0400 Body weight 96.25 kg PHYSICIAN NO [facility] 05-11-2022 18:20-0500 Body height 160.02 cm Dequan Watkins Other [employer] Other 05-11-2022 18:20-0500 Body mass index (BMI) [Ratio] 36.31 kg/m2 Dequan Watkins Other [employer] Other 05-11-2022 18:20-0500 Body temperature 97.7 [degF] Dequan Watkins Other [employer] Other 05-11-2022 18:20-0500 Body weight 92.99 kg Dequan Watkins Other [employer] Other 05-11-2022 18:20-0500 Respiratory rate 18 /min Dequan Watkins Other [employer] Other 05-11-2022 18:20-0500 SaO2% (BldA) [Mass fraction] 98 % Dequan Watkins Other [employer] Other 03-13-2022 21:08-0500 Heart rate 79 /min PHYSICIAN NO [facility] 03-13-2022 20:53-0500 Body height 161.29 cm PHYSICIAN NO [facility] 03-13-2022 20:53-0500 Body temperature 98.1 [degF] PHYSICIAN NO [facility] 03-13-2022 20:53-0500 Body weight 92.98 kg PHYSICIAN NO [facility] 03-13-2022 20:53-0500 Diastolic blood pressure 74 mm[Hg] PHYSICIAN NO [facility] 03-13-2022 20:53-0500 Respiratory rate 22 /min PHYSICIAN NO [facility] 03-13-2022 20:53-0500 SaO2% (BldA) [Mass fraction] 100 % PHYSICIAN NO [facility] 12-04-2022 20:53-0500 Systolic blood pressure 123 mm[Hg] PHYSICIAN NO FAMILY [facility] Encounters Encounter Date Encounter Type Care Provider Facility Start: 06-29-2023 End: 06-29-2023 ambulatory PARVEEN DE LOS SANTOS Not Available Start: 06-01-2023 End: 06-01-2023 ambulatory PARVEEN DE LOS SANTOS Not Available Start: 05-17-2023 End: 05-17-2023 Emergency department patient visit Jas Perdomo Facility:[facility] Start: 05-17-2023 End: 05-17-2023 Emergency department patient visit Services [facility] Work Phone: [facility] Work Phone: Start: 05-10-2023 End: 05-10-2023 ambulatory PARVEEN DE LOS SANTOS Not Available Start: 04-26-2023 End: 04-26-2023 ambulatory PARVEEN DE LOS SANTOS Not Available Start: 04-17-2023 End: 04-18-2023 Emergency department patient visit Apollo Malloy Facility:[facility] Start: 04-17-2023 End: 04-17-2023 Emergency department patient visit [facility] Work Phone: [facility] Work Phone: Start: 01-01-2023 End: 01-02-2023 Emergency department patient visit PHYSICIAN NO FAMILY Facility:[facility] Start: 01-01-2023 End: 01-01-2023 Emergency department patient visit PHYSICIAN NO FAMILY [facility] Work Phone: Start: 11-21-2022 End: 11-22-2022 ambulatory Marcy Huizar CARLOS Facility:[facility] Start: 11-17-2022 End: 11-18-2022 ambulatory Marcy Gaye CARLOS Facility:[facility] Start: 11-14-2022 End: 11-15-2022 ambulatory Marcy Gaye CARLOS Facility:[facility] Start: 09-21-2022 End: 09-21-2022 ambulatory PHYSICIAN NO FAMILY Facility:[facility] Start: 05-11-2022 End: 05-11-2022 ambulatory Dequan Watkins Other [employer] Other Start: 05-11-2022 Office outpatient visit 15 minutes Dequan Watkins [facility] [address] Start: 03-13-2022 End: 03-13-2022 Emergency department patient visit PHYSICIAN KERWIN TRAMMELL [facility] Start: 12-10-2021 End: 12-10-2021 Departed Referred GAS SPECIALIST-Leighann Santo Work Phone: [facility] Start: 09-17-2021 End: 09-18-[address] DOCTOR MELENDEZ Facility: Start: 01-06-2021 Office outpatient visit 5 minutes Dequan Watkins [facility] [address] Procedures Date Procedure Procedure Detail Performing Clinician Start: 05-17-2023 SARS-CoV-2, Influenz a & RSV (PCR) Services [facility] Work Phone: Plan of Treatment Date Care Activity Detail Author Start: 01-01-2023 CT angiography of head [facility] Start: 01-01-2023 CT angiography of ne ck vessels [facility] Start: 01-01-2023 CT of head without contrast CT head/brain wo con [facility] Start: 01-01-2023 CT Unspecified body region WO contrast [facility] Start: 12-10-2021 [facility] Work Phone: Nuclear Ab [Titer] i n Serum [facility] Work Phone: Patient Education [facility] Work Phone: Patient referral [facility] Work Phone: [facility] Work Phone: Payers Date Payer Category Payer Self-pay [id number] 2020 Medicaid [id number] 2016 Private Health Insurance [employer] [id number] 1994 Unknown [id number] 1994 Unknown [id number] 9 1994 Unknown [id number] 9 1994 Unknown [id number] 9 1994 Unknown [id number] 9 1959 Private Health Insurance [id number] Unknown [id number] Unknown [id number] Unknown HCAP/HFA/FAP Active [id number] 2 [id number] Unknown [id number] Unknown [id number] Unknown [id number] Unknown [id number] Social History Date Type Detail Facility Unknown if ever smoked [facility] Other Sex Assigned At Sex Assigned At Bir th [facility] Other Start: 10-20-2017 End: 05-17-2023 Tobacco smoking status NHIS Never smoked tobacco (finding) [facility] Start: 1995 Sex Assigned At Female F [facility] Evaluation note 05-11-2022 Note Date & Type Note Facility 05-11-2022 Evaluation note Encounter Date Diagnosis Assessment Notes May, Sore throat (ICD-10 - J02.9) May, Strep pharyngitis (ICD-10 - J02.0) Symptoms presented in office today indicate Strep Throat. Take medications as directed. [place]water gargles may help with pain and disrupts bacteria and viral infections. Continue tylenol/ibu for general discomfort. Will prescribe amoxicillin. Encourage fluids. Symptoms should improve within the next 4-7 days. [facility] Other Evaluation note 01-06-2021 Note Date & Type Note Facility 01-06-2021 Evaluation note Encounter Date Diagnosis Assessment Notes Dec, Contact with and (suspected) exposure to other viral communicable diseases (ICD-10 - Z20.828) Dec, Other Additional time spent conducting pre-visit phone call, screening for symptoms, instructions on social distancing, application and removal of PPE, and cleaning of examination room, equipment and supplies was preformed. Patient education given for testing methodology and results. Patient care instructions given in writting by [facility] document. [facility] Other Evaluation note Note Date & Type Note Facility Evaluation note No assessment information availa ble [facility] Work Phone: History general Narrative - Reported Note Date & Type Note Facility History general Narrative - Reported Type Medical History asthma Hospitalization History asthma Hospitalization History child [facility] Other Hospital Discharge instructions Note Date & Type Note Facility Hospital Discharge instructions Additional Instructions Avoid drinking alcohol, sodas, spicy foods You can use Pepcid [id number] once per day, and you can use Zofran as needed for nausea Return for worsening or changing chest pain, shortness of breath, coughing up blood, lightheadedness, continued nausea and vomiting [facility] Work Phone: Hospital Discharge instructions Note Date & Type Note Facility Hospital Discharge instructions Additional Instructions Please return to emergency department for any new or worrisome symptoms including any return of lightheadedness, dizziness, blurry vision, headache, vomiting, fever. [facility] Work Phone: Summary Purpose Family History No Family History Records FoundNo Family History Records FoundNo Family History Records FoundNo Family History Records Found Advance Directives No Advanced Directives Records Found Advance Directive Response Recorded Date/ Time Advance Directives No October 21 12:48am Advance Directive Response Recorded Date/ Time Advance Directives No October 20 11:48pm Chief Complaint and Reason for Visit Chief Complaint Chronic fatigue Food Service Specialist shawn fatigue;Multiple joint gabo Chief Complaint chest pain Chief Complaint dizzy,nausea,blurry vision Chief Complaint Fever Chief Complaint Fever 8 wks iup feet swelling numbness Additional Source Comments INFORMATION SOURCE (unrecogn ized section and content) DATE CREATED AUTHOR 09/21/2021 [facility] DATE CREATED AUTHOR AUTHOR'S ORGANIZ ATION 11/24/2022 [facility] DATE CREATED AUTHOR AUTHOR'S ORGANIZ ATION 05/28/2023 [facility] DATE CREATED AUTHOR AUTHOR'S ORGANIZ ATION 06/30/2023 [facility] dical Specialists EPIC REASON FOR VISIT (unrecogniz ed section and content) #23 EXPOSURESORE THROAT, HEA DACHE Care Teams (unrecognized sec tion and content) Team Status: Inactive Member Role Status Dates Dania Santo NP-C Attending Provide r Active Team Status: Inactive Member Role Status Dates PHYSICIAN NO FAMILY Primary Care Provider Active Caden Trujillo DO Emergency Provider Active Team Status: Active Member Role Status Dates PHYSICIAN NO FAMILY Primary Care Provider Active Team Status: Inactive Member Role Status Dates PHYSICIAN NO FAMILY Primary Care Provider Active Shaunna Prakash MD Emergency Provider Active Team Status: Active Member Role Status Dates [facility] Primary Care Provider Active Team Status: Inactive Member Role Status Dates [facility] Primary Care Provider Active Apollo Malloy DO Emergency Provider Active Team Status: Inactive Member Role Status Dates [facility] Primary Care Provider Active Start: April 17, 2023 End: April 17, 2023 Apollo Malloy DO Emergency Provider Active St art: April 17, 2023 End: April 17, 2023 Team Status: Inactive Member Role Status Dates [facility] Primary Care Provider Active Start: May 17, 2023 End: May 17, 2023 Jas Perdomo PA-C Emergency Provider Active Start: May 17, 2023 End: May 17, 2023 Goals (unrecognized section and content) Goals may be documented in a n alternate section FOR RECORDS PERTAINING TO PATIENTS WHO ARE OR HAVE BEEN ENROLLED IN A CHEMICAL DEPENDENCY/SUBSTANCEABUSE PROGRAM, SOME INFORMATION MAY BE OMITTED. This clinical summary was aggregated from multiple sources. Caution should be exercised in using it in the provision of clinical care. This summary normalizes information from multiple sources, and as a consequence, information in this document may materially change the coding, format and clinical context of patient data. In addition, data may be omitted in some cases. CLINICAL DECISIONS SHOULD BE BASED ON THE PRIMARY CLINICAL RECORDS. [facility] provides no warranty or guarantee of the accuracy or completeness of information in this document.
== END 2023-07-13 02:23 | disposition home or self-care (01) ==
PROVIDERS: Emergency Provider Emergency Medicine
DX: O46.92 Antepartum hemorrhage, unspecified, second trimester (principal); Z3A.16 16 weeks gestation of pregnancy; O99.332 Smoking (tobacco) complicating pregnancy, second trimester; F17.200 Nicotine dependence, unspecified, uncomplicated
CPT/HCPCS: 76815; 76817; 99284